=== PATIENT | female | born 1955 | race Caucasian/White ===

== ENCOUNTER 2020-07-19 09:31 | Outpatient (REF) | payer SELFPAY ==
[2020-07-19 11:08] LABS: MANUAL DIFF FLAG NO
[2020-07-19 11:10] LABS: Basophils Absolute Auto 0.1 X10*3/uL (0.0-0.2); Basophils Percent Auto 0.9 % (0-2); Eosinophils Absolute Auto 0.1 X10*3/uL (0.0-0.4); Eosinophils Percent Auto 1.6 % (0-4); Hematocrit 47.9 % (37-47); Hemoglobin 15.4 g/dl (12.0-16.0); Imm Gran Abs Auto 0.02 X10*3/uL (0.00-0.03); Imm Gran Pct Auto 0.2 % (0.0-0.4); Lymphocytes Absolute Auto 1.7 X10*3/uL (1.2-4.9); Lymphocytes Percent Auto 20.8 % (20-40); Mean Corpuscular HGB Conc 32.2 g/dl (31.0-35.0); Mean Corpuscular Hemoglobin 28.3 pg (27.0-33.0); Mean Corpuscular Volume 87.9 fL (80-98); Monocytes Absolute Auto 0.5 X10*3/uL (0.1-1.2); Monocytes Percent Auto 6.4 % (2-11); Neutrophils Absolute Auto 5.6 X10*3/uL (2.0-8.3); Neutrophils Percent Auto 70.1 % (45-73); Platelet Count 286 X10*3/uL (160-400); Red Blood Count 5.45 X10*6/uL (4.20-5.50)
[2020-07-19 11:37] LABS: Estimated Average Glucose 128 mg/dL; Hemoglobin A1c % 6.1 %
[2020-07-19 11:50] LABS: Alanine Aminotransferase 34 U/L (0-31); Albumin Level 4.3 g/dL (3.5-5.0); Alkaline Phosphatase 115 U/L (39-117); Anion Gap 11 (12-20); Aspartate Amino Transferase 27 U/L (5-31); Bilirubin Total 0.6 mg/dL (0.0-1.0); Blood Urea Nitrogen 11 mg/dL (9-16); Calcium 9.3 mg/dL (8.4-10.2); Carbon Dioxide 31 mmol/L (22-29); Chloride 104 mmol/L (96-108); Estimated Glomerular Filt Rate > 60; Glucose Random 118 mg/dL (60-115); Sodium 141 mmol/L (135-145); Total Protein 6.8 g/dL (6.5-8.0)
[2020-07-19 12:12] LABS: Vitamin D 25-OH Total 16.4 ng/mL (>30)
== END 2020-07-19 09:32 | disposition home or self-care (01) ==
LOC: HO.MANLDS 09:31
PROVIDERS: Visit Provider Internal Medicine
DX: R73.01 Impaired fasting glucose (principal); E55.9 Vitamin D deficiency, unspecified
CPT/HCPCS: 36415; 80053; 82306; 83036; 85025

== ENCOUNTER 2020-11-20 14:48 | Outpatient (REF) | payer MEDICARE, SELFPAY ==
[2020-11-20 18:43] LABS: MANUAL DIFF FLAG NO
[2020-11-20 18:46] LABS: Basophils Absolute Auto 0.1 X10*3/uL (0.0-0.2); Eosinophils Absolute Auto 0.2 X10*3/uL (0.0-0.4); Eosinophils Percent Auto 1.9 % (0-4); Hematocrit 46.6 % (37-47); Imm Gran Abs Auto 0.03 X10*3/uL (0.00-0.03); Imm Gran Pct Auto 0.4 % (0.0-0.4); Lymphocytes Absolute Auto 1.7 X10*3/uL (1.2-4.9); Lymphocytes Percent Auto 20.6 % (20-40); Mean Corpuscular HGB Conc 32.2 g/dl (31.0-35.0); Mean Corpuscular Hemoglobin 28.1 pg (27.0-33.0); Mean Corpuscular Volume 87.4 fL (80-98); Mean Platelet Volume 9.8 fL (9.4-12.3); Monocytes Absolute Auto 0.5 X10*3/uL (0.1-1.2); Monocytes Percent Auto 6.4 % (2-11); Neutrophils Absolute Auto 5.8 X10*3/uL (2.0-8.3); Neutrophils Percent Auto 69.7 % (45-73); Platelet Count 311 X10*3/uL (160-400); Red Blood Count 5.33 X10*6/uL (4.20-5.50); Red Cell Distribution Width 13.3 % (11.0-16.0); White Blood Count 8.3 X10*3/uL (4.8-10.8)
[2020-11-20 19:08] LABS: Alanine Aminotransferase 38 U/L (0-31); Albumin Level 4.2 g/dL (3.5-5.0); Alkaline Phosphatase 109 U/L (39-117); Anion Gap 16 (12-20); Aspartate Amino Transferase 24 U/L (5-31); Bilirubin Total 0.6 mg/dL (0.0-1.0); Blood Urea Nitrogen 16 mg/dL (9-16); Calcium 9.1 mg/dL (8.4-10.2); Carbon Dioxide 21 mmol/L (22-29); Chloride 108 mmol/L (96-108); Estimated Glomerular Filt Rate > 60; Glucose Random 290 mg/dL (60-115); Iron 79 mcg/dL (30-160); Percent Iron Saturation 23 % (15-50); Sodium 141 mmol/L (135-145); Total Iron Binding Capacity 339 mcg/dL (228-428); Total Protein 6.7 g/dL (6.5-8.0); Unsaturated Iron Binding 260 ug/dL
[2020-11-20 19:28] LABS: Ferritin 44 ng/mL (10-250); Vitamin D 25-OH Total 18.5 ng/mL (>30)
[2020-11-20 21:43] LABS: Vitamin B12 512 pg/mL (200-900)
[2020-11-21 09:19] LABS: Estimated Average Glucose 134 mg/dL; Hemoglobin A1c % 6.3 %
== END 2020-11-20 14:49 | disposition home or self-care (01) ==
LOC: HO.MANLDS 14:48
PROVIDERS: PCP Internal Medicine; Visit Provider Internal Medicine
DX: E53.8 Deficiency of other specified B group vitamins (principal); R73.01 Impaired fasting glucose; E61.1 Iron deficiency
CPT/HCPCS: 36415; 80053; 82306; 82607; 82728; 83036; 83540; 85025

== ENCOUNTER 2021-02-07 10:33 | Outpatient (REF) | payer MEDICARE, SELFPAY ==
[2021-02-07 13:13] LABS: Estimated Average Glucose 140 mg/dL; Hemoglobin A1c % 6.5 %
[2021-02-07 13:16] LABS: Hemoglobin 14.5 g/dl (12.0-16.0); Mean Corpuscular HGB Conc 32.2 g/dl (31.0-35.0); Mean Corpuscular Hemoglobin 28.1 pg (27.0-33.0); Mean Corpuscular Volume 87.2 fL (80-98); Mean Platelet Volume 9.5 fL (9.4-12.3); Platelet Count 300 X10*3/uL (160-400); Red Blood Count 5.16 X10*6/uL (4.20-5.50); Red Cell Distribution Width 13.4 % (11.0-16.0); White Blood Count 8.2 X10*3/uL (4.8-10.8)
[2021-02-07 13:24] LABS: C Reactive Protein 0.54 mg/dL (< or = 0.50)
[2021-02-07 13:25] LABS: Alanine Aminotransferase 31 U/L (0-31); Albumin Level 4.2 g/dL (3.5-5.0); Alkaline Phosphatase 111 U/L (39-117); Anion Gap 16 (12-20); Aspartate Amino Transferase 24 U/L (5-31); Bilirubin Total 0.8 mg/dL (0.0-1.0); Blood Urea Nitrogen 11 mg/dL (9-16); Calcium 9.6 mg/dL (8.4-10.2); Carbon Dioxide 25 mmol/L (22-29); Chloride 106 mmol/L (96-108); Estimated Glomerular Filt Rate > 60; Glucose Random 109 mg/dL (60-115); Potassium 4.1 mmol/L (3.3-5.1); Sodium 143 mmol/L (135-145); Total Protein 6.6 g/dL (6.5-8.0)
[2021-02-07 13:45] LABS: Vitamin D 25-OH Total 48.4 ng/mL (>30)
[2021-02-07 13:56] LABS: Vitamin B12 310 pg/mL (200-900)
== END 2021-02-07 10:34 | disposition home or self-care (01) ==
LOC: HO.MANLDS 10:33
PROVIDERS: PCP Internal Medicine; Visit Provider Internal Medicine
DX: E55.9 Vitamin D deficiency, unspecified (principal); R73.01 Impaired fasting glucose; E53.8 Deficiency of other specified B group vitamins; I10 Essential (primary) hypertension
CPT/HCPCS: 36415; 80053; 82306; 82607; 83036; 85027; 86140

== ENCOUNTER 2021-07-03 08:15 | Outpatient (REF) | payer MEDICARE, SELFPAY ==
[2021-07-03 10:58] LABS: MANUAL DIFF FLAG NO
[2021-07-03 11:00] LABS: Basophils Absolute Auto 0.1 X10*3/uL (0.0-0.2); Basophils Percent Auto 0.8 % (0-2); Eosinophils Absolute Auto 0.1 X10*3/uL (0.0-0.4); Eosinophils Percent Auto 1.5 % (0-4); Hematocrit 46.2 % (37.0-47.0); Hemoglobin 14.8 g/dl (12.0-16.0); Imm Gran Abs Auto 0.03 X10*3/uL (0.00-0.03); Imm Gran Pct Auto 0.4 % (0.0-0.4); Lymphocytes Absolute Auto 1.8 X10*3/uL (1.2-4.9); Lymphocytes Percent Auto 23.4 % (20-40); Mean Corpuscular Hemoglobin 28.4 pg (27.0-33.0); Mean Corpuscular Volume 88.7 fL (80.0-98.0); Mean Platelet Volume 9.3 fL (9.4-12.3); Monocytes Absolute Auto 0.7 X10*3/uL (0.1-1.2); Neutrophils Absolute Auto 4.9 x10*3/uL (2.0-8.3); Neutrophils Percent Auto 64.9 % (45-73); Platelet Count 314 X10*3/uL (160-400); Red Blood Count 5.21 X10*6/uL (4.20-5.50); Red Cell Distribution Width 13.6 % (11.0-16.0); White Blood Count 7.5 X10*3/uL (4.8-10.8)
[2021-07-03 11:17] LABS: Estimated Average Glucose 134 mg/dL; Hemoglobin A1c % 6.3 %
[2021-07-03 11:31] LABS: Alanine Aminotransferase 30 U/L (0-31); Albumin Level 4.3 g/dL (3.5-5.0); Alkaline Phosphatase 69 U/L (39-117); Anion Gap 12 (12-20); Aspartate Amino Transferase 23 U/L (5-31); Bilirubin Total 0.9 mg/dL (0.0-1.0); Blood Urea Nitrogen 14 mg/dL (9-16); Calcium 9.7 mg/dL (8.4-10.2); Carbon Dioxide 27 mmol/L (22-29); Chloride 108 mmol/L (96-108); Cholesterol 191 mg/dL; Estimated Glomerular Filt Rate > 60; Glucose Fasting 119 mg/dL (60-99); HDL Cholesterol 60 mg/dL; LDL Cholesterol Calculated 112 mg/dl; Potassium 4.3 mmol/L (3.3-5.1); Sodium 143 mmol/L (135-145); Total Protein 6.7 g/dL (6.5-8.0); Triglycerides 96 mg/dL
== END 2021-07-03 08:16 | disposition home or self-care (01) ==
LOC: HO.MANLDS 08:15
PROVIDERS: PCP Physician Assistant; Visit Provider Physician Assistant
DX: R73.01 Impaired fasting glucose (principal)
CPT/HCPCS: 36415; 80053; 80061; 83036; 85025

== ENCOUNTER 2021-07-04 14:59 | Outpatient (REF) | payer MEDICARE, SELFPAY ==
[2021-07-04 20:20] LABS: Vitamin D 25-OH Total 32.2 ng/mL (>30)
== END 2021-07-04 15:00 | disposition home or self-care (01) ==
LOC: HO.MANLDS 14:59
PROVIDERS: PCP Internal Medicine; Visit Provider Internal Medicine
DX: E55.9 Vitamin D deficiency, unspecified (principal)
CPT/HCPCS: 36415; 82306

== ENCOUNTER 2022-05-13 10:38 | Outpatient (REF) | payer MEDICARE, SELFPAY ==
[2022-05-13 13:58] LABS: MANUAL DIFF FLAG NO
[2022-05-13 14:02] LABS: Basophils Absolute Auto 0.1 X10*3/uL (0.0-0.2); Basophils Percent Auto 0.9 % (0-2); Eosinophils Absolute Auto 0.1 X10*3/uL (0.0-0.4); Hemoglobin 14.6 g/dl (12.0-16.0); Imm Gran Abs Auto 0.05 X10*3/uL (0.00-0.03); Imm Gran Pct Auto 0.6 % (0.0-0.4); Lymphocytes Absolute Auto 1.4 X10*3/uL (1.2-4.9); Lymphocytes Percent Auto 18.7 % (20-40); Mean Corpuscular HGB Conc 32.4 g/dl (31.0-35.0); Mean Corpuscular Hemoglobin 28.1 pg (27.0-33.0); Mean Corpuscular Volume 86.5 fL (80.0-98.0); Mean Platelet Volume 9.9 fL (9.4-12.3); Monocytes Absolute Auto 0.7 X10*3/uL (0.1-1.2); Monocytes Percent Auto 9.3 % (2-11); Neutrophils Absolute Auto 5.4 x10*3/uL (2.0-8.3); Neutrophils Percent Auto 69.5 % (45-73); Platelet Count 292 X10*3/uL (160-400); Red Cell Distribution Width 13.2 % (11.0-16.0); White Blood Count 7.7 X10*3/uL (4.8-10.8)
[2022-05-13 14:14] LABS: Estimated Average Glucose 137 mg/dL; Hemoglobin A1c % 6.4 %
[2022-05-13 14:21] LABS: Alanine Aminotransferase 27 U/L (0-31); Albumin Level 4.3 g/dL (3.5-5.0); Alkaline Phosphatase 86 U/L (39-117); Anion Gap 16 (12-20); Aspartate Amino Transferase 26 U/L (5-31); Bilirubin Total 0.6 mg/dL (0.0-1.0); Blood Urea Nitrogen 18 mg/dL (9-16); Calcium 9.8 mg/dL (8.4-10.2); Carbon Dioxide 24 mmol/L (22-29); Chloride 106 mmol/L (96-108); Cholesterol 181 mg/dL; Estimated Glomerular Filt Rate > 60; Glucose Random 121 mg/dL (60-115); HDL Cholesterol 48 mg/dL; LDL Cholesterol Calculated 98 mg/dl; Potassium 4.3 mmol/L (3.3-5.1); Sodium 142 mmol/L (135-145); Total Protein 6.7 g/dL (6.5-8.0); Triglycerides 175 mg/dL
[2022-05-13 14:34] LABS: Vitamin D 25-OH Total 28.2 ng/mL (>30)
== END 2022-05-13 10:39 | disposition home or self-care (01) ==
LOC: HO.MANLDS 10:38
PROVIDERS: Visit Provider Physician Assistant
DX: R73.01 Impaired fasting glucose (principal); E55.9 Vitamin D deficiency, unspecified
CPT/HCPCS: 36415; 80053; 80061; 82306; 83036; 85025

== ENCOUNTER 2022-09-18 11:27 | Outpatient (REF) | payer MEDICARE, SELFPAY ==
[2022-09-18 15:38] LABS: Estimated Average Glucose 143 mg/dL; Hemoglobin A1c % 6.6 %
== END 2022-09-18 11:28 | disposition home or self-care (01) ==
LOC: HO.MANLDS 11:27
PROVIDERS: Visit Provider Internal Medicine
DX: R73.01 Impaired fasting glucose (principal)
CPT/HCPCS: 36415; 83036

== ENCOUNTER 2022-12-10 08:28 | Outpatient (REF) | payer MEDICARE, SELFPAY | END 2022-12-10 08:29 | disposition home or self-care (01) | LOC: HO.MANLDS 08:28 | PROVIDERS: Visit Provider Internal Medicine | DX: Z13.89 Encounter for screening for other disorder (principal) | CPT/HCPCS: 36415; 83036 ==

== ENCOUNTER 2022-12-11 | Outpatient (REF) | payer MEDICARE, SELFPAY ==
[2022-12-11 12:57] LABS: Estimated Average Glucose 131 mg/dL; Hemoglobin A1c % 6.2 %
[2022-12-11 13:14] LABS: Alanine Aminotransferase 25 U/L (0-31); Albumin Level 4.2 g/dL (3.5-5.0); Alkaline Phosphatase 99 U/L (39-117); Anion Gap 14 (12-20); Aspartate Amino Transferase 19 U/L (5-31); Bilirubin Total 0.7 mg/dL (0.0-1.0); Blood Urea Nitrogen 16 mg/dL (9-16); Calcium 9.1 mg/dL (8.4-10.2); Carbon Dioxide 25 mmol/L (22-29); Chloride 108 mmol/L (96-108); Cholesterol 184 mg/dL; Estimated Glomerular Filt Rate > 60; Glucose Random 134 mg/dL (60-115); HDL Cholesterol 54 mg/dL; LDL Cholesterol Calculated 114 mg/dl; Sodium 143 mmol/L (135-145); Total Protein 6.4 g/dL (6.5-8.0); Triglycerides 83 mg/dL
[2022-12-11 13:27] LABS: Vitamin B12 423 pg/mL (200-900)
== END 2022-12-11 00:01 | disposition home or self-care (01) ==
LOC: HO.LAB
PROVIDERS: Visit Provider Internal Medicine
DX: Z13.89 Encounter for screening for other disorder (principal)
CPT/HCPCS: 36415; 80053; 80061; 82043; 82306; 82607; 83036

== ENCOUNTER 2022-12-17 06:16 | Outpatient (REF) | payer MEDICARE, SELFPAY ==
--- NOTE | ~2022-12-17 | XR_ITS ---
X-ray bilateral hips CLINICAL HISTORY: Pain. COMPARISON: No relevant prior studies are available for comparison. TECHNIQUE: 2 views of each hip. FINDINGS: No acute fracture or malalignment. Moderate joint space narrowing, subcortical sclerosis and osteophytosis of the left hip. Mild joint space narrowing and subcortical sclerosis of the right hip. No significant soft tissue abnormality. XR/XR hip LT min 2V IMPRESSION: No acute fracture or malalignment. 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
--- NOTE | ~2022-12-17 | XR_ITS ---
X-ray bilateral hips CLINICAL HISTORY: Pain. COMPARISON: No relevant prior studies are available for comparison. TECHNIQUE: 2 views of each hip. FINDINGS: No acute fracture or malalignment. Moderate joint space narrowing, subcortical sclerosis and osteophytosis of the left hip. Mild joint space narrowing and subcortical sclerosis of the right hip. No significant soft tissue abnormality. XR/XR hip RT min 2V IMPRESSION: No acute fracture or malalignment. 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
== END 2022-12-17 06:17 | disposition home or self-care (01) ==
LOC: HO.XRAY 06:16
PROVIDERS: PCP Internal Medicine; Visit Provider Internal Medicine
DX: M16.0 Bilateral primary osteoarthritis of hip (principal)
CPT/HCPCS: 73502

== ENCOUNTER 2023-06-24 08:13 | Outpatient (REF) | payer MEDICARE, SELFPAY ==
[2023-06-24 13:54] LABS: Estimated Average Glucose 151 mg/dL; Hemoglobin A1c % 6.9 % (<6.0)
[2023-06-24 14:10] LABS: Alanine Aminotransferase 27 U/L (0-31); Albumin Level 4.3 g/dL (3.5-5.0); Alkaline Phosphatase 99 U/L (39-117); Anion Gap 11 (12-20); Aspartate Amino Transferase 23 U/L (5-31); Bilirubin Total 0.7 mg/dL (0.0-1.0); Blood Urea Nitrogen 14 mg/dL (9-16); Calcium 9.8 mg/dL (8.4-10.2); Carbon Dioxide 27 mmol/L (22-29); Chloride 106 mmol/L (96-108); Cholesterol 181 mg/dL (<200); Estimated Glomerular Filt Rate > 60; Glucose Random 134 mg/dL (60-115); HDL Cholesterol 56 mg/dL (>40); LDL Cholesterol Calculated 104 mg/dL (<100); Potassium 3.5 mmol/L (3.3-5.1); Sodium 140 mmol/L (135-145); Total Protein 7.2 g/dL (6.5-8.0); Triglycerides 106 mg/dL (<150)
[2023-06-24 14:18] LABS: Vitamin D 25-OH Total 27.3 ng/mL (>30)
[2023-06-24 14:51] LABS: Vitamin B12 711 pg/mL (200-900)
== END 2023-06-24 08:14 | disposition home or self-care (01) ==
LOC: HO.MANLDS 08:13
PROVIDERS: Visit Provider Internal Medicine
DX: E53.8 Deficiency of other specified B group vitamins (principal); E11.9 Type 2 diabetes mellitus without complications; E55.9 Vitamin D deficiency, unspecified
CPT/HCPCS: 36415; 80053; 80061; 82306; 82607; 83036

== ENCOUNTER 2023-10-01 15:56 | Outpatient (REF) | payer MEDICARE, SELFPAY ==
--- NOTE | ~2023-10-01 | XR_ITS ---
EXAMINATION: XR CHEST CLINICAL INFORMATION: Right chest,? Pneumonia COMPARISON: None available. TECHNIQUE: 2 views of the chest were obtained. FINDINGS: No significant abnormality is noted involving the heart, lungs, mediastinum, bony thorax or soft tissues. XR/XR chest 2V IMPRESSION: No acute cardiopulmonary disease.
== END 2023-10-01 15:57 | disposition home or self-care (01) ==
LOC: HO.HMGCX 15:56
PROVIDERS: PCP Internal Medicine; Visit Provider Physician Assistant
DX: R07.89 Other chest pain (principal)
CPT/HCPCS: 71046

== ENCOUNTER 2023-10-02 08:29 | Outpatient (REF) | payer MEDICARE, SELFPAY ==
[2023-10-02 11:30] LABS: Appearance Urine Cloudy; Color Urine Dark Yellow; Glucose Urine UA 100 mg/dL (Negative); Leukocyte Esterase Urine Negative (Negative); Nitrite Urine Negative (Negative); PH 5.5 (5.0-9.0); Specific Gravity - Urine 1.025 (1.005-1.025); UMIC TRIGGER UACC YES; Urine Blood Negative (Negative); Urine Ketones Trace mg/dL (Negative); Urine Protein 100 (2+) mg/dL (Neg-Trace)
[2023-10-02 11:34] LABS: MANUAL DIFF FLAG NO
[2023-10-02 11:39] LABS: Basophils Percent Auto 0.6 % (0-2); Eosinophils Percent Auto 0.3 % (0-4); Hematocrit 48.8 % (37.0-47.0); Imm Gran Abs Auto 0.02 X10*3/uL (0.00-0.03); Imm Gran Pct Auto 0.3 % (0.0-0.4); Lymphocytes Absolute Auto 0.7 X10*3/uL (1.2-4.9); Lymphocytes Percent Auto 11.8 % (20-40); Mean Corpuscular HGB Conc 32.8 g/dl (31.0-35.0); Mean Corpuscular Hemoglobin 27.8 pg (27.0-33.0); Mean Corpuscular Volume 84.7 fL (80.0-98.0); Mean Platelet Volume 9.7 fL (9.4-12.3); Monocytes Absolute Auto 0.8 X10*3/uL (0.1-1.2); Neutrophils Absolute Auto 4.6 x10*3/uL (2.0-8.3); Platelet Count 244 X10*3/uL (160-400); Red Blood Count 5.76 X10*6/uL (4.20-5.50); Red Cell Distribution Width 13.4 % (11.0-16.0); White Blood Count 6.3 X10*3/uL (4.8-10.8)
[2023-10-02 11:55] LABS: Bacteria Urine Trace (None Seen); Granular Casts Urine Present; RBC Urine 0-2 /HPF (0-2); Renal Epithelial Cells Urine Present; Transitional Epi Cells Urine Present; WBC Urine 0-5 /HPF (0-5)
[2023-10-02 12:30] LABS: Alanine Aminotransferase 25 U/L (0-31); Albumin Level 4.4 g/dL (3.5-5.0); Alkaline Phosphatase 113 U/L (39-117); Anion Gap 15 (12-20); Aspartate Amino Transferase 20 U/L (5-31); Bilirubin Total 0.7 mg/dL (0.0-1.0); Blood Urea Nitrogen 11 mg/dL (9-16); Calcium 9.4 mg/dL (8.4-10.2); Carbon Dioxide 26 mmol/L (22-29); Chloride 101 mmol/L (96-108); Estimated Glomerular Filt Rate > 60; Ferritin 92 ng/mL (10-250); Glucose Random 170 mg/dL (60-115); Iron 34 mcg/dL (30-160); Magnesium 2.2 mg/dL (1.6-2.6); Percent Iron Saturation 11 % (15-50); Potassium 3.7 mmol/L (3.3-5.1); Sodium 138 mmol/L (135-145); Total Iron Binding Capacity 311 mcg/dL (228-428); Total Protein 7.5 g/dL (6.5-8.0); Unsaturated Iron Binding 277 ug/dL
[2023-10-02 12:33] LABS: Erythrocyte Sedimentation Rate 10 MM/HR (0-20)
[2023-10-03 18:09] LABS: Lyme Abs Screen <0.90 index
== END 2023-10-02 08:30 | disposition home or self-care (01) ==
LOC: HO.HMGCLDS 08:29
PROVIDERS: PCP Internal Medicine; Visit Provider Physician Assistant
DX: R53.83 Other fatigue (principal)
CPT/HCPCS: 36415; 80053; 81001; 82728; 83540; 83735; 85025; 85652; 86140; 86617; 86618

== ENCOUNTER 2023-10-20 08:07 | Outpatient (REF) | payer MEDICARE, SELFPAY ==
[2023-10-20 13:48] LABS: Estimated Average Glucose 154 mg/dL
[2023-10-20 14:47] LABS: Cholesterol 184 mg/dL (<200); HDL Cholesterol 58 mg/dL (>40); LDL Cholesterol Calculated 100 mg/dL (<100); Triglycerides 132 mg/dL (<150)
[2023-10-20 14:50] LABS: Vitamin D 25-OH Total 18.3 ng/mL (>30)
== END 2023-10-20 08:08 | disposition home or self-care (01) ==
LOC: HO.MANLDS 08:07
PROVIDERS: Visit Provider Internal Medicine
DX: E11.9 Type 2 diabetes mellitus without complications (principal); E55.9 Vitamin D deficiency, unspecified
CPT/HCPCS: 36415; 80061; 82306; 83036

== ENCOUNTER 2024-04-19 08:04 | Outpatient (REF) | payer MEDICARE, SELFPAY ==
[2024-04-19 10:29] LABS: MANUAL DIFF FLAG NO
[2024-04-19 10:34] LABS: Basophils Absolute Auto 0.1 X10*3/uL (0.0-0.2); Basophils Percent Auto 1.3 % (0-2); Eosinophils Absolute Auto 0.1 X10*3/uL (0.0-0.4); Hematocrit 48.1 % (37.0-47.0); Hemoglobin 15.5 g/dl (12.0-16.0); Imm Gran Abs Auto 0.02 X10*3/uL (0.00-0.03); Imm Gran Pct Auto 0.3 % (0.0-0.4); Lymphocytes Absolute Auto 1.6 X10*3/uL (1.2-4.9); Lymphocytes Percent Auto 22.3 % (20-40); Mean Corpuscular HGB Conc 32.2 g/dl (31.0-35.0); Mean Corpuscular Hemoglobin 27.5 pg (27.0-33.0); Mean Corpuscular Volume 85.3 fL (80.0-98.0); Mean Platelet Volume 9.7 fL (9.4-12.3); Monocytes Absolute Auto 0.5 X10*3/uL (0.1-1.2); Monocytes Percent Auto 7.7 % (2-11); Neutrophils Absolute Auto 4.7 x10*3/uL (2.0-8.3); Neutrophils Percent Auto 66.4 % (45-73); Platelet Count 326 X10*3/uL (160-400); Red Blood Count 5.64 X10*6/uL (4.20-5.50); Red Cell Distribution Width 13.4 % (11.0-16.0)
[2024-04-19 10:48] LABS: Estimated Average Glucose 146 mg/dL; Hemoglobin A1c % 6.7 % (<6.0)
[2024-04-19 11:23] LABS: Alanine Aminotransferase 27 U/L (0-31); Albumin Level 4.4 g/dL (3.5-5.0); Alkaline Phosphatase 101 U/L (39-117); Anion Gap 13 (12-20); Aspartate Amino Transferase 26 U/L (5-31); Bilirubin Total 0.7 mg/dL (0.0-1.0); Blood Urea Nitrogen 14 mg/dL (9-16); Calcium 9.8 mg/dL (8.4-10.2); Carbon Dioxide 26 mmol/L (22-29); Chloride 107 mmol/L (96-108); Cholesterol 179 mg/dL (<200); Estimated Glomerular Filt Rate > 60; Glucose Random 115 mg/dL (60-115); HDL Cholesterol 50 mg/dL (>40); LDL Cholesterol Calculated 113 mg/dL (<100); Potassium 4.3 mmol/L (3.3-5.1); Sodium 142 mmol/L (135-145); Total Protein 7.2 g/dL (6.5-8.0); Triglycerides 80 mg/dL (<150)
[2024-04-19 11:33] LABS: Vitamin B12 428 pg/mL (200-900)
== END 2024-04-19 08:05 | disposition home or self-care (01) ==
LOC: HO.HMGCLR 08:04
PROVIDERS: PCP Internal Medicine; Visit Provider Internal Medicine
DX: Z00.00 Encounter for general adult medical examination without abnormal findings (principal); E78.5 Hyperlipidemia, unspecified; E53.8 Deficiency of other specified B group vitamins; E11.9 Type 2 diabetes mellitus without complications
CPT/HCPCS: 36415; 80053; 80061; 82607; 82746; 83036; 84443; 85025

== ENCOUNTER 2024-07-19 08:37 | Outpatient (REF) | payer MEDICARE, SELFPAY ==
[2024-07-19 10:38] LABS: MANUAL DIFF FLAG NO
[2024-07-19 10:41] LABS: Basophils Absolute Auto 0.1 X10*3/uL (0.0-0.2); Basophils Percent Auto 0.8 % (0-2); Eosinophils Absolute Auto 0.1 X10*3/uL (0.0-0.4); Eosinophils Percent Auto 1.4 % (0-4); Hematocrit 45.5 % (37.0-47.0); Imm Gran Abs Auto 0.02 X10*3/uL (0.00-0.03); Imm Gran Pct Auto 0.2 % (0.0-0.4); Lymphocytes Absolute Auto 1.5 X10*3/uL (1.2-4.9); Lymphocytes Percent Auto 18.3 % (20-40); Mean Corpuscular Hemoglobin 27.5 pg (27.0-33.0); Mean Corpuscular Volume 83.3 fL (80.0-98.0); Mean Platelet Volume 9.5 fL (9.4-12.3); Monocytes Absolute Auto 0.6 X10*3/uL (0.1-1.2); Monocytes Percent Auto 6.7 % (2-11); Neutrophils Absolute Auto 6.1 x10*3/uL (2.0-8.3); Neutrophils Percent Auto 72.6 % (45-73); Platelet Count 311 X10*3/uL (160-400); Red Blood Count 5.46 X10*6/uL (4.20-5.50); Red Cell Distribution Width 13.7 % (11.0-16.0); White Blood Count 8.4 X10*3/uL (4.8-10.8)
[2024-07-19 11:29] LABS: Alanine Aminotransferase 25 U/L (0-31); Albumin Level 4.2 g/dL (3.5-5.0); Alkaline Phosphatase 95 U/L (39-117); Anion Gap 11 (12-20); Aspartate Amino Transferase 27 U/L (5-31); Bilirubin Total 0.7 mg/dL (0.0-1.0); Blood Urea Nitrogen 17 mg/dL (9-16); Calcium 8.8 mg/dL (8.4-10.2); Carbon Dioxide 27 mmol/L (22-29); Chloride 108 mmol/L (96-108); Cholesterol 180 mg/dL (<200); Estimated Average Glucose 120 mg/dL; Estimated Glomerular Filt Rate > 60; Glucose Random 99 mg/dL (60-115); HDL Cholesterol 57 mg/dL (>40); Hemoglobin A1C 150.7402 umol/L; Hemoglobin A1c % 5.8 % (<6.0); LDL Cholesterol Calculated 108 mg/dL (<100); Potassium 3.9 mmol/L (3.3-5.1); Sodium 142 mmol/L (135-145); Total Hemoglobin (HGBA1C) 3818.2057 umol/L; Triglycerides 78 mg/dL (<150)
[2024-07-19 11:33] LABS: Free T4 (Free Thyroxine) 1.01 ng/dL (0.71-1.85)
[2024-07-19 11:43] LABS: Folate 10.4 ng/mL (> or = 4.0); Vitamin B12 509 pg/mL (200-900)
== END 2024-07-19 08:38 | disposition home or self-care (01) ==
LOC: HO.HMGCLR 08:37
PROVIDERS: PCP Internal Medicine; Visit Provider Internal Medicine
DX: Z00.00 Encounter for general adult medical examination without abnormal findings (principal); E53.8 Deficiency of other specified B group vitamins; E78.5 Hyperlipidemia, unspecified; E11.9 Type 2 diabetes mellitus without complications
CPT/HCPCS: 36415; 80053; 80061; 82607; 82746; 83036; 84439; 84443; 85025

== ENCOUNTER 2024-09-28 08:20 | Outpatient (REF) | payer MEDICARE, SELFPAY ==
--- OUTSIDE RECORDS SUMMARY | 2024-09-28 08:42 | XMS_ITS | Data Portability ---
Author Organization [facility] Address [address] [place] [address] Assessment Encounter Date Assessment Date Assessment LastModified by Organization Details LastModified Time 10/01/2023 10/01/2023 Patient agreed and verbally consents to this audio and video Telehealth appt via a secure platform [email or web address] Not available 10/01/2023 14:48:47 10/22/2023 10/22/2023 [id number] [place] [id number] (TOUR CONDUCTOR) MDM MODERATE MUST MEET 2 OUT OF 3 ELEMENTS: PROBLEMS, DATA OR RISK ELEMENT 1: PROBLEMS ADDRESSED 1 OR MORE CHRONIC ILLNESS WITH EXACERBATION OR 2 OR MORE STABLE CHRONIC ILLNESSES OR 1 UNDIAGNOSED NEW PROBLEM OR 1 ACUTE ILLNESS W/SYMPTOMS OR 1 ACUTE COMPLICATED INJURY ELEMENT 2: DATA MUST MEET 1 OF 3 CATEGORIES CATEGORY 1: REVIEW OF PRIOR EXTERNAL NOTES, REVIEW OF RESULTS, ORDERING OF EACH TEST, ASSESSMENT REQUIRING INDEPENDENT HISTORIAN OR CATEGORY 2: INDEPENDENT INTERPRETATION OF TESTS BY ANOTHER PHYSICIAN OR SPECIALIST OR CATEGORY 3: DISCUSSION OF MGT OR TEST INTERPRETATION W/EXTERNAL PHYSICIAN OR SPECIALIST ELEMENT 3: RISK RISK OF COMPLICATIONS AND/OR MORBIDITY OR MORTALITY OF PATIENT MANAGEMENT PROVIDER MUST THOROUGHLY DOCUMENT EACH ELEMENT THAT IS COVERED Not available 10/22/2023 10:24:00 03/23/2024 03/23/2024 Patient agreed and verbally consents to this audio and video Telehealth appt via a secure platform [email or web address] Not available 03/23/2024 15:44:39 04/26/2024 04/26/2024 [id number] [place] [address] (TOUR CONDUCTOR) MDM MODERATE MUST MEET 2 OUT OF 3 ELEMENTS: PROBLEMS, DATA OR RISK ELEMENT 1: PROBLEMS ADDRESSED 1 OR MORE CHRONIC ILLNESS WITH EXACERBATION OR 2 OR MORE STABLE CHRONIC ILLNESSES OR 1 UNDIAGNOSED NEW PROBLEM OR 1 ACUTE ILLNESS W/SYMPTOMS OR 1 ACUTE COMPLICATED INJURY ELEMENT 2: DATA MUST MEET 1 OF 3 CATEGORIES CATEGORY 1: REVIEW OF PRIOR EXTERNAL NOTES, REVIEW OF RESULTS, ORDERING OF EACH TEST, ASSESSMENT REQUIRING INDEPENDENT HISTORIAN OR CATEGORY 2: INDEPENDENT INTERPRETATION OF TESTS BY ANOTHER PHYSICIAN OR SPECIALIST OR CATEGORY 3: DISCUSSION OF MGT OR TEST INTERPRETATION W/EXTERNAL PHYSICIAN OR SPECIALIST ELEMENT 3: RISK RISK OF COMPLICATIONS AND/OR MORBIDITY OR MORTALITY OF PATIENT MANAGEMENT PROVIDER MUST THOROUGHLY DOCUMENT EACH ELEMENT THAT IS COVERED Not available 04/26/2024 10:10:04 07/16/2024 07/16/2024 [id number] [place] [id number] (TOUR CONDUCTOR) MDM MODERATE MUST MEET 2 OUT OF 3 ELEMENTS: PROBLEMS, DATA OR RISK ELEMENT 1: PROBLEMS ADDRESSED 1 OR MORE CHRONIC ILLNESS WITH EXACERBATION OR 2 OR MORE STABLE CHRONIC ILLNESSES OR 1 UNDIAGNOSED NEW PROBLEM OR 1 ACUTE ILLNESS W/SYMPTOMS OR 1 ACUTE COMPLICATED INJURY ELEMENT 2: DATA MUST MEET 1 OF 3 CATEGORIES CATEGORY 1: REVIEW OF PRIOR EXTERNAL NOTES, REVIEW OF RESULTS, ORDERING OF EACH TEST, ASSESSMENT REQUIRING INDEPENDENT HISTORIAN OR CATEGORY 2: INDEPENDENT INTERPRETATION OF TESTS BY ANOTHER PHYSICIAN OR SPECIALIST OR CATEGORY 3: DISCUSSION OF MGT OR TEST INTERPRETATION W/EXTERNAL PHYSICIAN OR SPECIALIST ELEMENT 3: RISK RISK OF COMPLICATIONS AND/OR MORBIDITY OR MORTALITY OF PATIENT MANAGEMENT PROVIDER MUST THOROUGHLY DOCUMENT EACH ELEMENT THAT IS COVERED Not available 07/16/2024 11:34:51 Plan of Treatment Reminders Order Date Submit Date Provider Last Modified By Organization Details Last Modified Time Details Appointments FOLLOW UP 15 2024 10:00A M DR OLIVARES Not available Not available Not available Lab vitamin D, 25-hydrox y, total, serum 2023 024 [facility], [address] [place] [address], [id number], 07/16/2024 11:40:11 HbA1c (hemoglob in A1c), blood 2023 024 [email or web address] [facility], [address] [place] [address], [place], [address], 09/24/2024 15:03:43 iron + TIBC + ferritin, serum 2023 024 [facility], [place], [address], 10/01/2023 14:52:33 TSH + free T4, serum 2023 024 [facility], [address] [place] [address] [place], [address], 10/01/2023 14:52:33 CBC w/ auto diff 2023 024 [facility], [address] [place] [address] [place], [address], 10/03/2023 11:21:09 CMP, serum or plasma 2023 024 [facility], [address] [place] [address] [place], [address], 10/03/2023 11:21:08 ESR (erythroc yte sedimenta tion rate), blood 2023 024 [facility], [address] [place] [address] [place], [address], 10/01/2023 14:52:33 lyme disease igg+igm, serum, reflex western blot 2023 024 [facility], [address] [place] [address] [place], [address], 10/06/2023 11:45:13 magnesium , serum or plasma 2023 024 [facility], [address] [place] [address] [place], [address], 10/01/2023 14:52:33 C-reactiv e protein, quantitat ho, serum or plasma 2023 024 [facility], [address] [place] [address] [place], [address], 10/01/2023 14:52:34 urinalysi s complete, reflex culture 2023 024 [facility], [address] [place] [address] [place], [address], 10/03/2023 11:21:09 Referral None recorded. Procedures None recorded. Surgeries None recorded. Imaging XR, chest, 2 view 2023 [facility]24 [facility], [address] [place] [address] [place], [address], 10/03/2023 09:15:56 Medication Orders ketoconaz ole 2 % topical cream 2023 024 [id number], [address] [place], [address], 07/16/2024 10:55:12 Patient TargetsNo targets recorded. Patient Instructions Encounter Date Encounter Id Patient Instructions Last Modified By Organization Details Last Modified Time 10/22/2023 [id number] athlete's foot: care instructions Not available 10/22/2023 10:30:37 07/16/2024 [id number] learning about type 2 diabetes Not available 07/16/2024 11:35:14 type 2 diabetes: care instructions Not available 07/16/2024 11:35:14 Reason for Referral None Reported. Results Created Date Observation Date Name Description Value Unit Range Abnormal Flag Note LastModifiedBy Organization Detail LastModifiedTime 10/06/19 24 10/01/2023 XR, chest , 2 view No observ ation record ed. [email or web address] [address] [place], [address], 10/06/2023 16:05:10 Result Notes None recorded. Problems Name Problem SNOMED Code Status Onset Date Resolution Date Notes Provider Name and Address Organization Details Recorded Time Cobalami n deficien cy 306271807 Active 2017 [facility] 8 15:51:50 Vitamin D below referenc e range 666395909 Active 2017 [facility] 8 15:52:02 Impaired fasting glycemia 593530927 Completed 201909/19/2022 Santos Olivares DO [address] [place] [address], [address], [facility] 3 21:55:01 Type 2 diabetes mellitus 65307566 Active 2022 Santos Olivares, DO [address] [place] [address], [address], [facility] 3 21:55:15 Osteoart hritis of left hip joint 33988784313 9108 Active 2022 Santos Olivares, DO [address] [place] [address], [address], [facility] 3 15:11:19 Osteoart hritis of right hip joint 04119531462 9107 Active 2022 Santos Olivares, DO [address] [place] [address], [address], [facility] 3 15:11:25 Osteoart hritis 434312991 Active 2022 Santos Olivares, DO [address] [place] [address], [address], [facility] 3 21:38:10 Vitamin D deficien cy 72934366 Active 2022 Santos Olivares, DO [address] [place] [address], [address], [facility] 3 14:17:22 Pain in left foot 99219586195 9107 Active 2022 Santos Olivares, DO [address] [place] [address], [address], [facility] 3 21:43:11 Tight chest 06706828 Active 2023 DONNIE GRAHAM [address] [place] [address], [address], [facility] 4 14:49:26 Fatigue 12782264 Active 2023 DONNIE GRAHAM [address] [place] [address], [address], [facility] 4 14:49:37 Acute urinary tract infectio n 780029364 Active 2023 DONNIE GRAHAM [address] [place], [address], [facility] 4 15:21:06 Cough 24389606 Active 2023 DONNIE GRAHAM [address] [place], [address], [facility] 4 15:21:26 Tinea pedis 8008825 Active 2023 Santos Olivares DO [address] [place], [address], [facility] 4 10:29:32 Dizzines s 269567470 Active 2023 DONNIE GRAHAM [address] [place], [address], [facility] 4 15:44:18 Problem Notes None recorded. Procedures Surgical History None recorded. Imaging Results Imaging Date Name Status LastModified by Organiz ation Details LastModified Time 10/01/2023 XR, chest, 2 view completed [address] [place], [address], 10/06/2023 16:05:10 Procedure Notes None recorded. Medical Equipment None Reported. Allergies No known drug allergies Medications Name Sig Start Date Stop Date Status Note LastModified by Organization Details LastModified Time metformin 500 mg tablet Take 1 tablet every day by oral route. 09/18 completed Not Available Not Available Not Available Iron (ferrous sulfate) 325 mg (65 mg iron) tablet Take 1 tablet every day by oral route. 10/21 completed Not Available Not Available Not Available meloxicam 15 mg tablet TAKE 1 TABLET BY MOUTH EVERY DAY active Not Available Not Available No t Available alendronate 70 mg tablet Take 1 tablet every week by oral route. 09/18 completed Not Available Not Available Not Available sulfamethox azole 800 mg-trimetho prim 160 mg tablet TAKE 1 TABLET BY MOUTH EVERY 12 HOURS FOR 10 DAYS 10/21 completed Not Available Not Available Not Available triamcinolo ne acetonide 0.1 % topical cream APPLY A THIN LAYER TO THE AFFECTED AREA(S) BY TOPICAL ROUTE 2 TIMES PER DAY 07/04 completed Not Available Not Available Not Available terbinafine HCl 250 mg tablet 01/22 completed Not Available Not Available Not Available cyanocobala min (vit B-12) 1,000 mcg/mL injection solution INJECT 1.5ML MONTHLY. *NOT COVERED* active Not Available Not Available No t Available mupirocin 2 % topical ointment APPLY A SMALL AMOUNT TO THE AFFECTED AREA BY TOPICAL ROUTE 3 TIMES PERDAY 05/22 completed Not Available Not Available Not Available methylpredn isolone 4 mg tablets in a dose pack TAKE 6 TABLETS ON DAY 1 DIRECTED ON PACKAGE AND DECREASE BY 1 TAB EACH DAY FOR A TOTAL OF 6 DAYS 10/21 completed Not Available Not Available Not Available hydrocodone 10 mg-chlorphe niramine 8 mg/5 mL oral susp extend.rel 12hr Take 5 mL every 12 hours by oral route as needed for 7 days. 01/22 completed Not Available Not Available Not Available ketoconazol e 2 % topical cream APPLY TOPICALLY EVERY DAY 07/16 completed Not Available Not Available Not Available magnesium active Not Available Not Domi ilable Not Available vitamin K 07/23 completed Not Available Not Available Not Available zinc 10/21 completed Not Available Not Available Not Available Vitamin D 5000 units once a week 10/21 completed Not Available Not Available Not Available Glucos Chond Cplx Advanced 01/03 completed Not Available Not Available Not Available diclofenac 1 % topical gel APPLY 2 GRAMS TO THE AFFECTED AREA(S) BY TOPICAL ROUTE 4 TIMES PER DAY 07/16 completed Not Available Not Available Not Available Adacel (Tdap Adolesn/Augie lt)(PF)2 Lf-(2.5-5-3 -5)-5 Lf/0.5 mL IM syringe 07/23 completed Not Available Not Available Not Available cholecalcif sander (vitamin D3) 125 mcg (5,000 unit) tablet Take by oral route. active Not Available Not Available No t Available Prevnar 13 (PF) 0.5 mL intramuscul ar syringe 10/20 completed Not Available Not Available Not Available Shingrix (PF) 50 mcg/0.5 mL intramuscul ar suspension, kit 10/20 completed Not Available Not Available Not Available Fluzone Quad 60 mcg (15 mcg x 4)/0.5 mL IM suspension 10/20 completed Not Available Not Available Not Available Fluzone Quad (PF) 60 mcg (15 mcg x 4)/0.5 mL IM syringe 07/23 completed Not Available Not Available Not Available BinaxNOW COVID-19 Ag Self Test kit TEST DIRECTED TODAY 09/18 completed Not Available Not Available Not Available Vitals Date Recorded Body height Body mass index (BMI) Body weight Heart rate Oxygen saturation Oxygen saturation in Arterial blood by Pulse oximetry Systolic blood pressure Diastolic blood pressure Provider Name and Address Organization Details Last Updated DateTime 4 153.04 cm 41.4 kg/m2 15898.6 9 g 79 /min 97 % 97 % 138 mm[Hg] 90 mm[Hg] Paola Loera [facility] 4 10:11:20 Date Recorded Body height Body mass index (BMI) Body weight Heart rate Oxygen saturation Oxygen saturation in Arterial blood by Pulse oximetry Systolic blood pressure Diastolic blood pressure Provider Name and Address Organization Details Last Updated DateTime 4 153.04 cm 40.1 kg/m2 96401.6 2 g 78 /min 96 % 96 % 130 mm[Hg] 80 mm[Hg] Carolina Dexter [facility] 4 09:48:22 Date Recorded Body height Body mass index (BMI) Body weight Heart rate Oxygen saturation Oxygen saturation in Arterial blood by Pulse oximetry Systolic blood pressure Diastolic blood pressure Provider Name and Address Organization Details Last Updated DateTime 4 153.04 cm 38.7 kg/m2 85319.4 7 g 72 /min 98 % 98 % 140 mm[Hg] 82 mm[Hg] Alfred Gabriel [facility] 4 10:57:01 Social History Question Answer Notes LastModified by Organizat ion Details LastModified Time Tobacco Smoking Status Never Smoker Not Available [facility] 05/30/2020 03:36:23 What Was The Date Of Your Most Recent Tobacco Screening? 07/16/2024 [email or web address] Information not available 07/16/2024 Do You Use Any Illicit Or Recreational Drugs? No [email or web address] Information not available 06/30/2023 Do You Or Have You Ever Used Any Other Forms Of Tobacco Or Nicotine? No [email or web address] Information not available 06/30/2023 Sex: Unknown Functional Status None recorded. Mental Status None recorded. Family History Nothing Reported. Medical History No medical history recorded. Gynecological HistoryNo gynecological history recorded. Obstetrics History GPAL:G 0 P 0 0 0 0 Immunizations Vaccine Type Date Status Note Provider Nam e and Address Organization Details Recorded Time Influenza, split virus, quadrivalent, preservative 1 completed Teresa cool [facility] 06/30/2023 10:52:06 COVID-19, mRNA, LNP-S, PF, 100 mcg/0.5mL dose or 50 mcg/0.25mL dose 1 completed Teresa cool [facility] 06/30/2023 10:52:06 Pneumococcal conjugate PCV 13 8 completed Teresa cool [facility] 06/30/2023 10:52:06 COVID-19, mRNA, LNP-S, bivalent, PF, 50 mcg/0.5 mL or 25mcg/0.25 mL dose 1 completed Teresa cool [facility] 06/30/2023 10:52:06 COVID-19, mRNA, LNP-S, bivalent, PF, 50 mcg/0.5 mL or 25mcg/0.25 mL dose 1 completed Teresa cool [facility] 06/30/2023 10:52:06 COVID-19, mRNA, LNP-S, bivalent, PF, 50 mcg/0.5 mL or 25mcg/0.25 mL dose 2 completed Teresa cool [facility] 06/30/2023 10:52:06 influenza, unspecified formulation 2 completed Teresa cool [facility] 06/30/2023 10:52:06 Influenza, split virus, quadrivalent, preservative 9 completed Teresa cool [facility] 06/30/2023 10:52:05 Tdap 9 completed Not Available [facility] 01/15/2023 11:02:08 pneumococcal polysaccharide PPV23 0 completed Teresa cool [facility] 06/30/2023 10:52:06 Influenza, split virus, quadrivalent, preservative 0 completed Teresa Castillo silvina [facility] 06/30/2023 10:52:06 Past Encounters Encounter ID Performer Location Encounter Start Date Encounter Closed Date Diagnosis/Indication Diagnosis SNOMED-CT Code Diagnosis ICD10 Code Diagnosis Note [id number] October FREDDY Fernandez [facility] [address] [facility] [address] 06/02/2018 15:47:10 06/02/2018 16:35:54 Hernia of anterior abdominal wall 635154398 K43.9 Infection of skin and/or subcutaneous tissue 72207386 L08.9 of umbilicus unclear if bacterial vs fungal dilligent skin cleansing will await skin culture Tight chest 65729113 R07 .89 pt refused ekg, ama it is however probably unlikely ACS - no htn, high cholestero l, family history, smoking hx, excess etoh history, diabetes. only risk factor is obesity did not feel it was cardiac in nature would like to monitor sx for change or worsening and will f/u if severe crushing chest pain, agrees to call 618 [id number] Santos Olivares DO [facility] [address] [address] 10/20/2018 10:52:45 10/20/2018 11:54:48 Upper respiratory infection 38260540 J06.9 will have her use mucinex and afrin nasal spray will call if anything [place] [id number] Santos Olivares [facility] [address] [address] 01/22/2019 14:55:58 01/22/2019 15:24:38 Vitamin D below reference range 356871629 E55.9 Cobalamin deficiency 190 528123 E53.8 Adult heal th examination 049159407 Z00.00 Multiple joint pain 3567 8005 M25.50 [id number] Santos Olivares [facility] [address] [address] 04/02/2019 08:59:48 04/02/2019 10:12:37 Vitamin D below reference range 967804677 E55.9 Cobalamin deficiency 190 633729 E53.8 Hyperglycemia 52947421 R 73.9 Osteoarthritis of hip 23 8785342 M16.0 [id number] Santos Olivares [facility] [address] [address] 07/23/2019 09:09:18 07/23/2019 09:35:42 Cobalamin deficiency 163891397 E53.8 Taking 1000 mcg Inj/week Vitamin D below reference range 240287915 E55.9 Taking 5000 IU daily and recheck today No change in level of fatigue Adult heal th examination 029393266 Z00.00 Doing well mammo today [id number] Santos Olivares [facility] [address] [address] 01/04/2020 14:52:44 01/04/2020 15:41:46 Cobalamin deficiency 833510976 E53.8 Taking 1000 mcg Inj/week Impaired f asting glycemia 379378590 R73.01 Iron deficiency 59085107 E61.1 [id number] Santos Olivares [facility] [address] [address] 07/18/2020 13:52:13 07/18/2020 15:13:12 Impaired fasting glycemia 524740756 R73.01 no issues we will get her some lab work w a1c Vitamin D below reference range 591282442 E55.9 Taking 5000 IU daily and recheck today No change in level of fatigue Cobalamin deficiency 190 725603 E53.8 Taking 1000 mcg Inj/week will get her some more lab work [id number] Santos Olivares [facility] [address] [address] 07/04/2021 13:43:48 07/06/2021 09:49:40 Impaired fasting glycemia 865279754 R73.01 now better with a1c down to 6.3and back in the IFG Vitamin D below reference range 327706686 E55.9 Taking 50,000 IU weekly and recheck today No change in level of fatigue Pre-surger y evaluation 944276598 Z01.818 per the 2017 ACC cardiac risk stratifica tion this patient is deemed a Low risk for the proposed shoulder surgery. She understand s how to take her medication on the morning of the surgery and otherwise has no special instructio ns. [id number] Santos Olivares [facility] [address] [address] 05/22/2022 09:39:35 05/22/2022 12:16:37 Impaired fasting glycemia 067326968 R73.01 now better with a1c is at 6.4 was 6.3she is still stable Vitamin D below reference range 877319493 E55.9 she will resume the vit D3No change in level of fatigue Cobalamin deficiency 190 954843 E53.8 Taking 1000 mcg Inj/week will get her some more lab work Advance care planning 71 9378188 Z71.89 discussed Active or passive immunization 352690011 Z23 patient advised she is due flu shot, shingles [id number] Santos Olivares [facility] [address] [place] [address],[place] [place] [address] 09/18/2022 10:43:45 09/18/2022 13:51:57 Impaired fasting glycemia 510120622 R73.01 she will need to get a a1c done to follow last a1c is 6.4she is still stablebut we would have her repeat the lab and follow [id number] Santos Olivares [facility] [address] [address] 12/13/2022 14:48:36 12/13/2022 15:19:45 Osteoarthritis of left hip joint 8755978800 58702 M16.12 Osteoarthr itis of right hip joint 9036218492 69457 M16.11 will be getting hip xrays Type 2 jose betes mellitus 68289383 E11.9 doing well and reviewed all lab a1c is 6.2 [id number] Santos Olivares DO [facility] [address] [address] 02/28/2023 07:57:57 02/28/2023 15:26:08 Osteoarthritis of left hip joint 2866320508 27271 M16.12 moderate deg changes p Osteoarthr itis of right hip joint 4178920960 57477 M16.11 mild djd changes Type 2 jose betes mellitus 60391938 E11.9 doing well and reviewed all lab a1c is 6.2 Vitamin D deficiency 347 00935 E55.9 [id number] Santos Olivares [facility] [address] [address] 06/30/2023 10:51:57 06/30/2023 11:48:39 Type 2 diabetes mellitus 72896190 E11.9 doing well and reviewed all lab a1c is 6.9 was 6.3 last time Osteoarthritis 803966470 M19.90 noted to be more sore lately barbi if she has been sitting for any length of time has to wait a bit before she can keep moving noted joint pain with the weather / Osteoarthr itis of left hip joint 5283315150 43822 M16.12 moderate deg changes Vitamin D below reference range 643965482 E55.9 she will resume the vit D3No change in level of fatigue Cobalamin deficiency 190 037065 E53.8 Taking 1000 mcg Inj/week will get her some more lab work [id number] DONNIE GRAHAM [facility] [address] [address] 10/01/2023 13:45:19 10/01/2023 16:23:47 Tight chest 32546801 R07.89 will set up with CXR, r/o or r/in pneumonia Fatigue 05891447 R53.83 fu blood work as well for other acute causes including UTI [id number] Santos Olivares [facility] [address] [facility] [place] [address] 10/22/2023 09:41:50 10/22/2023 10:52:37 Type 2 diabetes mellitus 44097568 E11.9 doing well and reviewed all lab a1c is 6.9 was 6.3 last time Vitamin D deficiency 347 87642 E55.9 now at 18 she had stopped couple months ago so needs Osteoarthritis 909500219 M19.90 noted to be more sore lately barbi if she has been sitting for any length of time has to wait a bit before she can keep moving noted joint pain with the weather / Vitamin D below reference range 217442415 E55.9 she will resume the vit D3No change in level of fatigue Cobalamin deficiency 190 418974 E53.8 Taking 1000 mcg Inj/week will get her some more lab work Elaina curry 9154418 B35. 3 will need to tx otc no t helping [id number] DONNIE GRAHAM [facility] [address] [facility] [place] [address] 03/23/2024 08:47:21 03/23/2024 16:07:56 Fall 8686660 W19.XXXA doing good Dizziness 218138180 R42 improving [id number] Santos Olivares DO [facility] [address] [place] [address] 04/26/2024 09:35:29 04/26/2024 10:18:47 Type 2 diabetes mellitus 35239754 E11.9 doing well and reviewed all lab a1c is 6.7was 6.9 last time Dizziness 047683292 R42 still having an occ prob with episodes Vitamin D below reference range 946463504 E55.9 she will resume the vit D3No change in level of fatigue [id number] Santos Olivares DO [facility] [address] [place] [address] 07/16/2024 10:43:50 07/16/2024 11:44:57 Depression screening 804566293 Z13.31 neg Type 2 jose betes mellitus 68006210 E11.9 doing well and reviewed all lab a1c is 6.7was 6.9 last time current a1c is pending Vitamin D deficiency [id number] 25621 E55.9 now at 18 she had stopped couple months ago so needs Health Concerns Section Related Observation LastModified by Organization Detai ls LastModified Time None Recorded Concern Status LastModified by Organization Details LastModified Time None Recorded Advance Directives Directive None Recorded Payers Encounter Date Sequence Insurance Name Policy Number Policy Duran Covered Member ID Duran Member ID Guarantor Name 10/01/2023 1 [place] PPO) [id number] Elidia Motyka [id number] Elidia Motyka 10/22/2023 2 [place] Elidia Aldanaa [id number] Elidia Motyka 10/22/2023 1 [place] PPO) [id number] Elidia Motyka [id number] Elidia Motyka 03/23/2024 2 [place] Elidia Aldanaa [id number] Elidia Motyka 03/23/2024 1 [place]PO) [id number] Elidia Motyka [id number] Elidia Motyka 04/26/2024 2 [place] Elidia Herrera [id number] Elidia Motyka 04/26/2024 1 [place] PPO) [id number] Elidia Motyka [id number] Elidia Motyka 07/16/2024 2 [place] Elidia Herrera [id number] Elidia Motyka 07/16/2024 1 [place] PPO) [id number] Elidia Motyka [id number] Elidia Motyka Notes Date Note Type Note Provider Name a nd Address Organization Details Recorded Time 4 text/html c/o not feeling well The patient is participating in this appointment via telemedicine communication with a phone call/video calling service ([employer])The patient consents to use of these platforms in place of an in-person appointment due to either sick symptoms the patient is presenting with or current office closure due to COVID exposure in order to keep our office staff and patients safe the patient is have mutliple joint and muscle painfeels like pins and needles sensation along her spinefeels subjectively feverish, has not taken her temperature took it during the appt, was 98.8 F the patient is also getting headaches, frontal and temporal areasno GI or urinary symptoms these symptoms start about a day ago and progressively got worse denies sob, cough, wheezingsome chest tightness negative COVID-19 test no recent exposures that she is aware of she does have a hx of pna with atypical presentation DONNIE GRAHAM [address] [place], [address], [facility] 10/01/2023 14:53:31 4 text/html here for rechk and is doing okrelates that she is tolerating meds states meloxicam is wondrful and is walking and doing exercises states she is doing great Santos AMario Olivares, DO [address] [place], [address], [facility] 10/22/2023 10:33:20 4 text/html c/o fall The patient is participating in this appointment via telemedicine communication with a phone call/video calling service ([employer])The patient consents to use of these platforms in place of an in-person appointment due to either sick symptoms the patient is presenting with or current office closure due to COVID exposure in order to keep our office staff and patients safe the patient reports about 10 days ago she fellthe patient reports that she fell trying to get onto a golf cart, doesn't remember hitting her head, but came down on her right sidethe patient reports she developed dizziness, spinning sensation, gets triggered turning her head to the rightno vision changesmild headaches, right side of the headpatient was having pain behind her R ear into her shoulder, improving, worsened when she is tried is taking melatonin to help sleep at nightno AMS, no excess confusionno LOC the patient doesn't notice any nauseano vomitingsome tinnitus but that has resolved no bruising or swelling behind the ear low GCS 15low wallisian concussion score low need for CTimproving DONNIE GRAHAM [address] [place], [address], [facility] 03/23/2024 15:44:55 4 text/html Care Management - DiabetesReported bypatient.Self Care:seeing eye doctor yearly for dilated eye exam; checking feet regularly; normal range of home blood sugars (in the low 100s); no side effects from medications Associated Symptoms:symptoms are usually well controlled; no fatigue; no dizziness; no excessive sweating; no headaches; no confusion; no increased thirst; no increased appetite; no increased urination; no blurred vision; no numbness of feet; no calluses on feet here for rechk and she is doing ok overall Santos Olivares DO [address] [place], [address], [facility] 04/26/2024 10:15:28 4 text/html Care Management - DiabetesReported bypatient.Self Care:seeing eye doctor yearly for dilated eye exam; checking feet regularly; normal range of home blood sugars (in the low 100s); no side effects from medications Associated Symptoms:symptoms are usually well controlled; no fatigue; no dizziness; no excessive sweating; no headaches; no confusion; no increased thirst; no increased appetite; no increased urination; no blurred vision; no numbness of feet; no calluses on feet here for rechk and is doing ok overallno major issues semiglutide use through Hers doing well with it losing wgt Santos Olivares DO [address] [place], [address], [facility] 07/16/2024 11:42:54 OBGyn Episode No OBEpisode recorded.
[2024-09-28 16:27] LABS: Estimated Average Glucose 114 mg/dL; Hemoglobin A1C 147.3958 umol/L; Hemoglobin A1c % 5.6 % (<6.0); Total Hemoglobin (HGBA1C) 3860.6198 umol/L
== END 2024-09-28 08:21 | disposition home or self-care (01) ==
LOC: HO.MANLDS 08:20
PROVIDERS: Visit Provider Internal Medicine
DX: E11.9 Type 2 diabetes mellitus without complications (principal)
CPT/HCPCS: 36415; 83036

== ENCOUNTER 2024-12-04 08:17 | Outpatient (REF) | payer MEDICARE, SELFPAY ==
--- NOTE | ~2024-12-04 | XR_ITS ---
CLINICAL HISTORY: CERVICALGIA 3 views cervical spine Comparison: None Findings: Normal alignment. No acute fractures or dislocation. Moderate multilevel degenerative disc disease, most pronounced at C4-C5, C5-C6 and C6-C7. Moderate multilevel facet osteoarthritis, qfodq-yubsxdf-rjgh-left. Prevertebral soft tissues within normal limits. IMPRESSION: Multilevel degenerative disc disease and facet osteoarthritis. This document has been electronically signed by: Luda Barnard MD on 12/06/2024 14:27:43
[2024-12-04 08:32] LABS: MANUAL DIFF FLAG NO
[2024-12-04 09:11] LABS: Basophils Absolute Auto 0.1 X10*3/uL (0.0-0.2); Basophils Percent Auto 0.8 % (0-2); Eosinophils Absolute Auto 0.1 X10*3/uL (0.0-0.4); Eosinophils Percent Auto 1.5 % (0-4); Hematocrit 46.5 % (37.0-47.0); Hemoglobin 14.9 g/dl (12.0-16.0); Imm Gran Abs Auto 0.03 X10*3/uL (0.00-0.03); Imm Gran Pct Auto 0.4 % (0.0-0.4); Lymphocytes Absolute Auto 1.6 X10*3/uL (1.2-4.9); Lymphocytes Percent Auto 21.3 % (20-40); Mean Corpuscular Hemoglobin 27.2 pg (27.0-33.0); Mean Corpuscular Volume 84.9 fL (80.0-98.0); Mean Platelet Volume 9.3 fL (9.4-12.3); Monocytes Absolute Auto 0.5 X10*3/uL (0.1-1.2); Monocytes Percent Auto 6.9 % (2-11); Neutrophils Percent Auto 69.1 % (45-73); Platelet Count 289 X10*3/uL (160-400); Red Blood Count 5.48 X10*6/uL (4.20-5.50); Red Cell Distribution Width 13.5 % (11.0-16.0); White Blood Count 7.3 X10*3/uL (4.8-10.8)
[2024-12-04 09:19] LABS: Estimated Average Glucose 120 mg/dL; Hemoglobin A1c % 5.8 % (<6.0); Total Hemoglobin (HGBA1C) 3908.5216 umol/L
[2024-12-04 10:04] LABS: Alanine Aminotransferase 23 U/L (0-31); Albumin Level 4.3 g/dL (3.5-5.0); Alkaline Phosphatase 91 U/L (39-117); Anion Gap 14 (12-20); Aspartate Amino Transferase 25 U/L (5-31); Bilirubin Total 0.6 mg/dL (0.0-1.0); Blood Urea Nitrogen 13 mg/dL (9-16); Calcium 9.6 mg/dL (8.4-10.2); Carbon Dioxide 24 mmol/L (22-29); Chloride 109 mmol/L (96-108); Cholesterol 201 mg/dL (<200); Estimated Glomerular Filt Rate > 60; Glucose Random 103 mg/dL (60-115); HDL Cholesterol 66 mg/dL (>40); LDL Cholesterol Calculated 121 mg/dL (<100); Sodium 143 mmol/L (135-145); Total Protein 7.1 g/dL (6.5-8.0); Triglycerides 73 mg/dL (<150)
[2024-12-04 10:11] LABS: Vitamin B12 393 pg/mL (200-900)
[2024-12-04 10:22] LABS: Vitamin D 25-OH Total 29.2 ng/mL (>30)
== END 2024-12-04 08:18 | disposition home or self-care (01) ==
LOC: HO.XRAY 08:17
PROVIDERS: PCP Internal Medicine; Visit Provider Internal Medicine
DX: E11.9 Type 2 diabetes mellitus without complications (principal); E55.9 Vitamin D deficiency, unspecified; D51.0 Vitamin B12 deficiency anemia due to intrinsic factor deficiency; M54.2 Cervicalgia
CPT/HCPCS: 36415; 72040; 80053; 80061; 82306; 82607; 83036; 85025

== ENCOUNTER → 2024-12-04 08:35 | Outpatient (BNV) | payer MEDICARE, SELFPAY | PROVIDERS: PCP Internal Medicine; Visit Provider Radiology Diagnostic Radiology | DX: M50.30 Other cervical disc degeneration, unspecified cervical region (principal) | CPT/HCPCS: 72040 ==

== ENCOUNTER 2025-06-22 08:28 | Outpatient (REF) | payer MEDICARE, SELFPAY ==
--- OUTSIDE RECORDS SUMMARY | 2025-06-22 08:52 | XMS_ITS | Encounter Summary ---
Author Organization [facility] Address [address] [place] [address] Phone Care Team Providers Care Small Wind Energy Installer Name Role Phone Santos Puga DO Unavailable Tamir Valdez DO Unavailable [phone] Dagmar Garcia PA-C Unavailable [phone] Magaly Diaz MD Unavailable [phone] Santos Puga DO Primary Care Provider [phone] Encounter Details Date Type Department Care Team (Late st Contact Info) Description 06/20/2020 Procedure Pass [facility] - [address] [place] [address] Social History Tobacco Use Types Packs/Day Years Used Date Smoking Tobacco: Never Assessed Comments No Sex and Gender Information Value Date Recorded Sex Assigned at Not on file Legal Sex Female 4:38 PM EST Gender Identity Not on file Sexual Orientation Not on file documented as of this encounter Plan of Treatment Upcoming Encounters Date Type Department Care Team (Late st Contact Info) Description 12/13/2024 Procedure Pass [address] [address] 07/15/2025 11:15 AM EST Appointment [address] [address] Santos Puga DO 179 [facility] [place] [address] [place] [address] [email or web address] 07/15/2025 11:45 AM EST Appointment [facility], Bone Density - [facility] [address] [place] [address] Santos Puga DO 179 [facility] [place] [address] [place] [address] documented as of this encounter Visit Diagnoses Not on filedocumented in this encounter Care Teams Small Wind Energy Installer Relationship Specialty Start Date End Date Santos Puga DO PCP - General 06/26/17 Santos Puga DO Historical LMR Provider 05/12/17 Tamir Valdez DO 4 [facility] Orthopedics & Sports [facility], [facility] [place] [address] Historical LMR Provider 05/12/17 Dagmar Garcia PA-C 4 [facility] Orthopedics Sports [facility], [place], [place] [phone] Historical LMR Provider 05/12/17 08/04/21 Magaly Diaz MD 4 [facility] Orthopedics & Sports [facility], [place], [place] [phone] Historical LMR Provider 05/12/17 documented as of this encounter Additional Source Comments The information contained in this document represents components of the legal health record. It is not the complete legal health record.[facility]
--- OUTSIDE RECORDS SUMMARY | 2025-06-22 08:52 | XMS_ITS | Encounter Summary ---
Author Organization [facility] Address [address] [place] [address] Phone Care Team Providers Care Associate Doctor Name Role Phone Santos Puga DO Unavailable Tamir Valdez DO Unavailable [phone] Dagmar Garcia PA-C Unavailable [phone] Magaly Diaz MD Unavailable [phone] Santos Puga DO Primary Care Provider [phone] Encounter Details Date Type Department Care Team (Late st Contact Info) Description 06/16/2018 Ancillary Orders Virtual Department [address] [place] [address] Fanta Fernandez PA-C [address] [place] [address] [email or web address] Lower abdominal pain Social History Tobacco Use Types Packs/Day Years Used Date Smoking Tobacco: Never Assessed Comments Unknown Sex and Gender Information Value Date Recorded Sex Assigned at Not on file Legal Sex Female 4:38 PM EST Gender Identity Not on file Sexual Orientation Not on file documented as of this encounter Plan of Treatment Upcoming Encounters Date Type Department Care Team (Late st Contact Info) Description 12/13/2024 Procedure Pass [address] [address] 07/15/2025 11:15 AM EST Appointment [address] [address] Santos Puga, DO 179 [facility] [place], [place] [phone] 07/15/2025 11:45 AM EST Appointment [facility], Bone Density - [facility] [address] [place] [address] Santos Puga DO 179 [facility] [place], [place] [phone] documented as of this encounter Visit Diagnoses Diagnosis Lower abdominal pain Abdominal pain, other specified site documented in this encounter Care Teams Associate Doctor Relationship Specialty Start Date End Date Santos PugaDO PCP - General 06/26/17 Edd Santos DO Xander Historical LMR Provider 05/12/17 Tamir Valdez DO 4 [facility] Orthopedics & Sports [facility], [facility] [place], [place] [phone] Historical LMR Provider 05/12/17 Dagmar Garcia PA-C 4 [facility] Orthopedics Sports [facility], [facility] [place], [place] [id number] Historical LMR Provider 05/12/17 08/04/21 Magaly Diaz MD 4 [facility] Orthopedics Sports [facility], [place] [address] Historical LMR Provider 05/12/17 documented as of this encounter Additional Source Comments The information contained in this document represents components of the legal health record. It is not the complete legal health record.[facility]
--- OUTSIDE RECORDS SUMMARY | 2025-06-22 08:52 | XMS_ITS | Encounter Summary ---
Author Organization [facility] Address [address] [place] [address] Phone Care Team Providers Care Cardiology Physician Assistant Name Role Phone Santos Puga DO Unavailable Tamir Valdez DO Unavailable Dagmar Garcia PA-C Unavailable Magaly Diaz MD Unavailable Santos Puga DO Primary Care Provider [phone] Encounter Details Date Type Department Care Team (Late st Contact Info) Description 02/05/2021 Ancillary Orders Virtual Department [address] [place] [address] Santos Puga DO 179 [facility] [place] [address] [place] [address] [email or web address] Left foot pain Social History Tobacco Use Types Packs/Day [...] st Contact Info) Description 12/13/2024 Procedure Pass [address] [address] 07/15/2025 11:15 AM EST Appointment [address] [address] Santos Puga, DO 179 [facility] [place] [address] [place] [address] [email or web address] 07/15/2025 11:45 AM EST Appointment [facility], Bone Density [facility] [address] [place] [address] Santos Puga, DO 179 [facility] [place] [address] [email or web address] documented as of this encounter Results * XR FOOT 3 OR MORE VIEWS (LEFT) (02/08/2021 9:27 AM EDT) Anatomical Region Laterality Modality Foot Left Computed Radiogr aphy 02/08/2021 9:30 AM EDT Impressions 02/08/2021 9:33 AM EDT Minimal midfoot osteoarthritis. Otherwise unremarkable plain film appearance of the foot. POS [id number] Narrative 02/08/2021 9:33 AM EDT 3 views. No comparison No signs of trauma, tumor or infection. No obvious soft tissue mass, gas or calcifications. Very minor degenerative spurring in the dorsal midfoot. No other significant arthritic changes. Procedure Note Brice Guzman MD - 02/08/2021 3 views. No comparison No signs of trauma, tumor or infection. No obvious soft tissue mass, gas or calcifications. Very minor degenerative spurring in the dorsal midfoot. No other significant arthritic changes. IMPRESSION: Minimal midfoot osteoarthritis. Otherwise unremarkable plain filmappearance of the foot. POS [id number] Santos Puga DO IMG XR LOWER EXTREMITY Final Res ult documented in this encounter Visit Diagnoses Diagnosis Left foot pain Pain in soft tissues of limb Left foot pain Pain in soft tissues of limb documented in this encounter Care Teams Cardiology Physician Assistant Relationship Specialty Start Date End Date Santos Puga DO PCP - General 06/26/17 Santos Puga Historical LMR Provider 05/12/17 Tamir Valdez DO 4 [facility] Orthopedics Sports [facility] [place], [place] [phone] Historical LMR Provider 05/12/17 Damgar Garcia PA-C [address] [place], [place] [phone] Historical LMR Provider 05/12/17 08/04/21 Magaly Diaz MD 4 [facility] Orthopedics [facility], [place], [place] [phone] Historical LMR Provider 05/12/17 documented as of this encounter Additional Source Comments The information contained in this document represents components of the legal health record. It is not the complete legal health record.[facility]
--- OUTSIDE RECORDS SUMMARY | 2025-06-22 08:53 | XMS_ITS | Encounter Summary ---
Author Organization [facility] Address [address] [place] [address] Phone Care Team Providers Care Autocad Detailer Name Role Phone Santos Puga DO Unavailable CourtneyTamir Buzz DO Unavailable [phone] Santos Puga DO Primary Care Provider [phone] Encounter Details Date Type Department Care Team (Late st Contact Info) Description 02/04/2022 Procedure Pass [address] [address] Social History Tobacco Use Types Packs/Day Years [...] st Contact Info) Description 12/13/2024 Procedure Pass [address] [address] 07/15/2025 11:15 AM EST Appointment [address] [address] Santos Puga DO 179 [facility] [place] [address] 07/15/2025 11:45 AM EST Appointment [address] [address] Santos Puga DO 179 [facility] [place] [address] documented as of this encounter Visit Diagnoses Not on filedocumented in this encounter Care Teams Autocad Detailer Relationship Specialty Start Date End Date Santos Puga DO PCP - General 06/26/17 Santos Puga DO [email or web address] Historical LMR Provider 05/12/17 Tamir Valdez DO [address] [place] [address] Orthopedics & Sports Medicine, [facility] [place] [address] [email or web address] Historical LMR Provider 05/12/17 documented as of this encounter Additional Source Comments The information contained in this document represents components of the legal health record. It is not the complete legal health record.[facility]
--- OUTSIDE RECORDS SUMMARY | 2025-06-22 08:53 | XMS_ITS | Encounter Summary ---
Author Organization [facility] Address [address] [place] [address] Phone Care Team Providers Care Payroll Human Resources Assistant Name Role Phone Santos Puga DO Unavailable Tamir Valdez DO Unavailable [phone] Dagmar Garcia PA-C Unavailable [phone] Magaly Diaz MD Unavailable [phone] Unknown, Unknown Primary Care Provider Santos Bullock DO Primary Care Provider [phone] Encounter Details Date Type Department Care Team (Late st Contact Info) Description 05/17/2017 Ancillary Orders [facility] OBGYN & Midwifery [address] [place] [address] Thuan Gallardo MD [address] [place] [address] Social History Tobacco Use Types Packs/Day Years [...] st Contact Info) Description 12/13/2024 Procedure Pass [address] [address] 07/15/2025 11:15 AM EST Appointment [address] [place] [address] Edd Santos Terrell, DO 179 [place] [address] 07/15/2025 11:45 AM EST Appointment [facility], Bone Density - [address] [address] Santos Puga, DO 179 [place] [address] documented as of this encounter Visit Diagnoses Not on filedocumented in this encounter Care Teams Payroll Human Resources Assistant Relationship Specialty Start Date End Date Unknown, Unknown, 4 [facility] Orthopedics Sports [facility], [place] [address] PCP - General 05/17/17 06/25/17 Santos Puga DO PCP - General 06/26/17 Santos Puga DO Historical LMR Provider 05/12/17 Tamir Valdez DO 4 [facility], [place], [place] [phone] Historical LMR Provider 05/12/17 Dagmar Garcia PA-C 4 [facility], [place], [place] [phone] Historical LMR Provider 05/12/17 08/04/21 Magaly Diaz MD 4 [facility] [place] [place] [address] Historical LMR Provider 05/12/17 documented as of this encounter Additional Source Comments The information contained in this document represents components of the legal health record. It is not the complete legal health record.[facility]
--- OUTSIDE RECORDS SUMMARY | 2025-06-22 08:53 | XMS_ITS | Encounter Summary ---
Author Organization [facility] Address [address] [place] [address] Phone Care Team Providers Care Knitter Hand Name Role Phone Santos Puga DO Unavailable CourtneyTamir DO Unavailable [phone] WardSantos shultz DO Primary Care Provider [phone] Encounter Details Date Type Department Care Team (Late st Contact Info) Description 01/15/2023 Ancillary Orders [facility] Medical [facility] Orthopedics & Sports Medicine [address] [place] [address] Brice Yusuf PA-C [address] [place] [address] Orthopedics & Sports Medicine, [place], [place] [phone] [email or web address] Social History Tobacco Use Types Packs/Day Years Used Date Smoking Tobacco: Never Assessed Education Answer Date Recorded Are you interested in more education? Not on ernesto e 11/22/2022 Are you concerned about learning? Not on file 11/22/2022 No 11/22/2022 No 11/22/2022 Digital Access Answer Date Recorded No 12/23/2022 No 12/23/2022 Reliable internet access at home? Not on file 12/23/2022 Device with a working camera? Not on file Comments No Sex and Gender Information Value Date Recorded Sex Assigned at Not on file Legal Sex Female 4:38 PM EST Gender Identity Not on file Sexual Orientation Not on file documented as of this encounter Plan of Treatment Upcoming Encounters Date Type Department Care Team (Late st Contact Info) Description 12/13/2024 Procedure Pass [facility], [address] [address] 07/15/2025 11:15 AM EST Appointment [address] [address] EddSantos, DO [address] [place] [address] 07/15/2025 11:45 AM EST Appointment [facility], Bone Density [address] [address] Santos Puga, DO [address] [place] [address] documented as of this encounter Visit Diagnoses Not on filedocumented in this encounter Care Teams Knitter Hand Relationship Specialty Start Date End Date Edd Santos DO Xander PCP - General 06/26/17 Santos Puga DO Historical LMR Provider 05/12/17 Tamir Valdez DO [address] [place] [address] Orthopedics & Sports Medicine, [place] [address] Historical LMR Provider 05/12/17 documented as of this encounter Additional Source Comments The information contained in this document represents components of the legal health record. It is not the complete legal health record.[facility]
--- OUTSIDE RECORDS SUMMARY | 2025-06-22 08:53 | XMS_ITS | Encounter Summary ---
Author Organization [facility] Address [address] [place] [address] Phone Care Team Providers Care Tnt Line Supervisor Name Role Phone Santos uPga DO Unavailable Tamir Valdez DO Unavailable Dagmar Garcia PA-C Unavailable [phone] Magaly Diaz MD Unavailable [phone] Santos Puga DO Primary Care Provider [phone] Encounter Details Date Type Department Care Team (Late st Contact Info) Description 06/22/2019 Ancillary Orders Virtual Department [address] [place] [address] Santos Puga DO 179 [facility] [place] [address] [place] [address] Breast screening Social History Tobacco Use Types Packs/Day Years [...] Contact Info) Description 12/13/2024 Procedure Pass [address] [address] 07/15/2025 11:15 AM EST Appointment [address] [address] Santos Puga, DO [address] [facility] [place] [address] [place] [address] [email or web address] 07/15/2025 11:45 AM EST Appointment [facility], Bone Density - [facility] [address] [place] [address] Santos Puga, DO [address] [facility] [place] [address] [place] [address] [email or web address] documented as of this encounter Results * BI MAMMOGRAM SCREENING WITH TOMOSYNTHESIS WITH CAD (BILATERAL) (07/23/2019 11:18 AM EST) Anatomical Region Laterality Modality Breast Left, Breast Right, Breast Bilateral Bila teral Mammography 07/23/2019 12:1 7 PM EST Impressions 07/23/2019 12:19 PM EST Stable appearance relative to prior imaging. No findings suggestive of malignancy are seen. BI-RADS CATEGORY: 2 - Benign finding. DENSITY: There are scattered fibroglandular densities. POS - [id number] Narrative 07/23/2019 12:19 PM EST Full-field digital mammography is obtained with computer-aided detection. Comparison with prior imaging from May 29, 2017 is made with older imaging dating back as far as July 27, 2008 also reviewed. There is scattered fibroglandular density evident in the breasts. In addition to 2-D C view imaging, tomosynthesis images are obtained in two projections of each breast. There are minor bilateral circular macrocalcifications evident which are unchanged.. No dominant soft tissue mass of concern, suspicious cluster of calcifications, significant interval skin changes, or architectural distortion is identified. Procedure Note Sung Ambrose MD - 07/23/2019 Full-field digital mammography is obtained with computer-aided detection.Comparison with prior imaging from May 29, 2017 is made with olderimaging dating back as far as July 27, 2008 also reviewed. There is scattered fibroglandular density evident in the breasts. Inaddition to 2-D C view imaging, tomosynthesis images are obtained in twoprojections of each breast. There are minor bilateral circular macrocalcifications evident which areunchanged.. No dominant soft tissue mass of concern, suspicious clusterof calcifications, significant interval skin changes, or architecturaldistortion is identified. IMPRESSION: Stable appearance relative to prior imaging. No findings suggestive ofmalignancy are seen. BI-RADS CATEGORY: 2 - Benign finding. DENSITY: There are scattered fibroglandular densities. POS - [id number] Santos Puga DO IMG MG EXAMS Final Result documented in this encounter Visit Diagnoses Diagnosis Breast screening Breast screening, unspecified Breast screening Breast screening, unspecified documented in this encounter Care Teams Tnt Line Supervisor Relationship Specialty Start Date End Date Santos Puga DO PCP - General 06/26/17 Santos Puga DO Historical LMR Provider 05/12/17 Tamir Valdez DO 4 [facility] [place] [address] Historical LMR Provider 05/12/17 Dagmar Garcia PA-C 4 [facility], [facility] [place] [address] Historical LMR Provider 05/12/17 08/04/21 Magaly Diaz MD 4 [facility], [place] [address] Historical LMR Provider 05/12/17 documented as of this encounter Additional Source Comments The information contained in this document represents components of the legal health record. It is not the complete legal health record.[facility]
--- OUTSIDE RECORDS SUMMARY | 2025-06-22 08:53 | XMS_ITS | Encounter Summary ---
Author Organization [facility] Address [address] [place] [address] Phone Care Team Providers Care Facer Operator Name Role Phone Santos Puga DO Unavailable Tamir Valdez DO Unavailable [phone] Dagmar Garcia PA-C Unavailable [phone] Magaly Diaz MD Unavailable [phone] Unknown, Unknown Primary Care Provider Santos Bullock DO Primary Care Provider [phone] Encounter Details Date Type Department Care Team (Late st Contact Info) Description 05/17/2017 Ancillary Orders [facility] X-Ray [address] [address] Thuan Gallardo MD [address] [place] [address] Visit for screening mammogram Social History Tobacco Use Types Packs/Day Years [...] st Contact Info) Description 12/13/2024 Procedure Pass [facility] [address] [address] 07/15/2025 11:15 AM EST Appointment [address] [place] [address] Santos Puga, DO 179 [facility] [place] [address] [email or web address] 07/15/2025 11:45 AM EST Appointment [facility], Bone Density - [address] [address] Santos Puga, DO [address] [facility] [place] [address] documented as of this encounter Results * BI MAMMOGRAM SCREENING WITH TOMOSYNTHESIS WITH CAD (BILATERAL) (05/29/2017 12:55 PM EDT) Anatomical Region Laterality Modality Breast Left, Breast Right, Breast Bilateral Bila teral Mammography 05/29/2017 4:40 PM EDT Impressions 05/29/2017 4:41 PM EDT No mammographic change indicative of malignancy. Routine screening is recommended. BI-RADS CATEGORY: 1 - Negative. DENSITY: The breast tissue is almost entirely fat. POS - [id number] Narrative 05/29/2017 4:41 PM EDT Bilateral full-field digital screening mammography is obtained and read in conjunction with computer-aided detection. Tomosynthesis as well as 2-D C view imaging of both breasts in two planes also obtained. Comparison made to multiple prior, most recent 04/26/2016, and most remote 07/08/2007. No dominant mass, suspicious microcalcification, architectural distortion, focal skin thickening or worrisome asymmetry is detected. Procedure Note Federico Price MD - 05/29/2017 Bilateral full-field digital screening mammography is obtained and read inconjunction with computer-aided detection. Tomosynthesis as well as 2-D Cview imaging of both breasts in two planes also obtained. Comparison madeto multiple prior, most recent 04/26/2016, and most remote 07/08/2007. No dominant mass, suspicious microcalcification, architectural distortion,focal skin thickening or worrisome asymmetry is detected. IMPRESSION: No mammographic change indicative of malignancy. Routine screening isrecommended. BI-RADS CATEGORY: 1 - Negative. DENSITY: The breast tissue is almost entirely fat. POS - [id number] us Thuan Gallardo MD IMG MG EXAMS Final Result documented in this encounter Visit Diagnoses Diagnosis Visit for screening mammogram Visit for screening mammogram documented in this encounter Care Teams Facer Operator Relationship Specialty Start Date End Date Unknown, Unknown, 4 [facility], [place] [address] PCP - General 05/17/17 06/25/17 Santos Puga DO PCP - General 06/26/17 Santos Puga DO Historical LMR Provider 05/12/17 Tamir Valdez DO 4 [facility], [place], [place] [id number] Historical LMR Provider 05/12/17 Dagmar Garcia PA-C 4 [facility], [place], [place] [id number] Historical LMR Provider 05/12/17 08/04/21 Magaly Diaz MD 4 [facility], [place] [address] Historical LMR Provider 05/12/17 documented as of this encounter Additional Source Comments The information contained in this document represents components of the legal health record. It is not the complete legal health record.[facility]
--- OUTSIDE RECORDS SUMMARY | 2025-06-22 08:53 | XMS_ITS | Encounter Summary ---
Author Organization [facility] Address [address] [place] [address] Phone Care Team Providers Care Personnel Adviser Name Role Phone Santos Puga DO Unavailable Tamir Valdez DO Unavailable Dagmar Garcia PA-C Unavailable Magaly Diaz MD Unavailable [phone] Santos Puga DO Primary Care Provider [phone] Encounter Details Date Type Department Care Team (Late st Contact Info) Description 06/20/2020 Ancillary Orders Virtual Department [address] [place] [address] Santos Puga DO 179 [facility] [place] [address] [place] [address] Breast screening Social History Tobacco Use Types [...] st Contact Info) Description 12/13/2024 Procedure Pass [address] [address] 07/15/2025 11:15 AM EST Appointment [address] [address] Santos Puga, DO 179 [facility] [place] [address] [place] [address] [email or web address] 07/15/2025 11:45 AM EST Appointment [facility], Bone Density - [facility] [address] [place] [address] Santos Puga, DO [address] [facility] [place] [address] [place] [address] [email or web address] documented as of this encounter Results * BI MAMMOGRAM SCREENING WITH TOMOSYNTHESIS WITH CAD (BILATERAL) (07/26/2020 9:38 AM EST) Anatomical Region Laterality Modality Breast Left, Breast Right, Breast Bilateral Bila teral Mammography 07/26/2020 9:40 AM EST Impressions 07/26/2020 9:44 AM EST No mammographic signs of malignancy. Annual screening is recommended. BI-RADS CATEGORY: 2 - Benign finding. DENSITY: There are scattered fibroglandular densities. Narrative 07/26/2020 9:44 AM EST Bilateral mammography is performed in conjunction with computed aided detection. 3-D tomography along with 2-D C view imaging was also performed. Comparison made to previous dated as far back as 08/27/2013 and as recent as 07/23/2019. No suspicious masses, areas of architectural distortion or suspicious microcalcifications. Stable bilateral lucent centered calcifications with benign characteristics. Procedure Note Bakari Jacobson MD - 07/26/2020 Bilateral mammography is performed in conjunction with computed aideddetection. 3-D tomography along with 2-D C view imaging was alsoperformed. Comparison made to previous dated as far back as 08/27/2013 andas recent as 07/23/2019. No suspicious masses, areas of architectural distortion or suspiciousmicrocalcifications. Stable bilateral lucent centered calcifications withbenign characteristics. IMPRESSION: No mammographic signs of malignancy. Annual screening is recommended. BI-RADS CATEGORY: 2 - Benign finding. DENSITY: There are scattered fibroglandular densities. Santos Puga DO IMG MG EXAMS Final Result documented in this encounter Visit Diagnoses Diagnosis Breast screening Breast screening, unspecified Breast screening Breast screening, unspecified documented in this encounter Care Teams Personnel Adviser Relationship Specialty Start Date End Date Santos Puga DO PCP - General 06/26/17 Santos PugaDO Historical LMR Provider 05/12/17 Tamir Valdez DO 4 [facility], [place], [place] [phone] Historical LMR Provider 05/12/17 Dagmar Garcia PA-C 4 [facility], [place], [place] [phone] Historical LMR Provider 05/12/17 08/04/21 Magaly Diaz MD 4 [facility], [place], [place] [phone] Historical LMR Provider 05/12/17 documented as of this encounter Additional Source Comments The information contained in this document represents components of the legal health record. It is not the complete legal health record.[facility]
--- OUTSIDE RECORDS SUMMARY | 2025-06-22 08:53 | XMS_ITS | Clinical Summary ---
Author Organization [facility] Address [address] [place] [address] Phone Care Team Providers Care Tool Procurement Coordinator Name Role Phone Santos Puga DO Unavailable Tamir Valdez DO Unavailable [phone] Wardcarrington Santos Jordana DO Primary Care Provider [phone] Allergies No known active allergies Medications Medication-Free Text B12 1.5 Active Medication-Free Text Vitamin D Active ACETAMINOPHEN (TYLENOL ORAL) Activ e cephalexin (KEFLEX) 500 MG capsule 4 capsules Orally 1 hour prior to dental appt 12/07/2014 Active diclofenac sodium (VOLTAREN) 75 MG EC tablet Take 1 tablet by mouth 2 (two) times a day. 06/27/2014 Active Medication-Free Text Iron Active Active Problems Problem Noted Date Diagnosed Date Left hip pain 05/01/2020 Social History Tobacco Use Types Packs/Day Years [...] on file Sexual Orientation Not on file Last Filed Vital Signs Vital Sign Reading Time Taken Comments Blood Pressure 135/85 12/28/2014 8:50 AM EDT Pulse 74 12/28/2014 8:50 AM EDT Temperature - - Respiratory Rate - - Oxygen Saturation - - Inhaled Oxygen Concentration - - Weight 98.3 kg (216 lb 12.8 oz) 05/01/2020 8:36 AM EDT Height 154.6 cm (5' 0.87 ) 05/01/2020 8:36 AM ED T Body Mass Index 41.14 05/01/2020 8:36 AM EDT Plan of Treatment Upcoming Encounters Date Type Department Care Team (Late st Contact Info) Description 12/13/2024 Procedure Pass [address] [address] 07/15/2025 11:15 AM EST Appointment [address] [address] Santos Puga, [address] [place] [address] 07/15/2025 11:45 AM EST Appointment [facility] Bone Density [address] [address] Santos Puga, [address] [place] [address] Health Maintenance Due Date Last Done Comments LIPID PANEL 1955 DEPRESSION SCREENING 1967 SMOKING Hx and SMOKELESS TOBACCO SCREENING 1968 HEPATITIS C SCREENING 1973 COLOGUARD 2000 COLONOSCOPY 2000 COLORECTAL CANCER SCREENING 2000 FIT TEST 2000 FOBT 2000 SIGMOIDOSCOPY 2000 VIRTUAL COLONOSCOPY 2000 ZOSTER VACCINES (1 of 2) 2005 MAMMOGRAM 05/21/2024 05/21/2022, 12/, 07/23/2019, Additional history exists INFLUENZA VACCINE (#1) 2025 2, 06/16/2021, 05/25/2020, Additional history exists COVID-19 VACCINE ( season) 2025 06/05/2022, 06/16/2021, 10/19/2020, Additional history exists Adult Td,Tdap Booster 05/22/2029 05/22/2019 RSV VACCINE (1 - 1-dose 75+ series) 2030 PNEUMOCOCCAL VACCINES (50+ years) Completed 04/20/2020, 11/03/2017 OSTEOPOROSIS SCREENING INITIAL (ONE-TIME) Completed 02/08/2021 HEPATITIS A VACCINES Aged Out No long er eligible based on patient's age to complete this topic HIB VACCINES Aged Out No longer eligi ble based on patient's age to complete this topic MENINGOCOCCAL VACCINES (ACWY) Aged Out No longer eligible based on patient's age to complete this topic MENINGOCOCCAL VACCINES (B) Aged Out N o longer eligible based on patient's age to complete this topic Medical Devices Not on file Procedures Procedure Name Priority Date/Time Associated Diagnosis Comments BI MAMMOGRAM SCREENING WITH TOMOSYNTHESIS WITH CAD (BILATERAL) Routine 05/21/2022 7:29 AM EDT Breast screening BD DXA AXIAL (SPINE) WITH HIP Routine 02/08/2021 9:21 AM EDT Other specified disorders of bone density and structure, unspecified site Osteopenia, unspecified location from Last 3 Months or Most Recently Relevant to Health Maintenance Results * BI MAMMOGRAM SCREENING WITH TOMOSYNTHESIS WITH CAD (BILATERAL) (05/21/2022 7:29 AM EDT) Anatomical Region Laterality Modality Breast Left, Breast Right, Breast Bilateral Bila teral Mammography 05/21/2022 4:30 PM EDT Impressions 05/21/2022 4:47 PM EDT No mammographic signs of malignancy. BI-RADS CATEGORY: 2 - Benign finding. DENSITY: The breast tissue is almost entirely fat. Narrative 05/21/2022 4:47 PM EDT History: Breast cancer screening. Bilateral mammography is performed in conjunction with computed aided detection. 3-D tomography along with 2-D C view imaging was also performed. Comparison made to previous dated as far back as 03/03/2003 and as recent as 07/26/2020. Findings: No suspicious masses, areas of architectural distortion or suspicious microcalcifications. Scattered benign calcifications again evident.. us Santos A Bigda DO IMG MG EXAMS Final Result * BD DXA AXIAL (SPINE) WITH HIP (02/08/2021 9:21 AM EDT) Anatomical Region Laterality Modality Bone Density Bone Density 02/08/2021 9:24 AM EDT Impressions 02/08/2021 11:04 AM EDT Lumbar spine and bilateral total hip osteopenia. Narrative 02/08/2021 11:04 AM EDT COMPARISON: 04/26/2016. BONE DENSITY FINDINGS: History: This is a 65-year-old postmenopausal female. Evaluation of the lumbar spine and hips was performed and felt to be technically adequate. L1-L4 vertebral bodies total bone mineral density was calculated at 0.841 gm/cm2 with a T-score of -1.9 falling within the WHO classification of osteopenia. Z-score of -0.1.Fracture risk increased. Right femoral neck bone mineral density was calculated at 0.664 gm/cm2 with a T- score of -1.7 falling within the WHO classification of osteopenia. Z-score of -0.1. Total Right hip bone mineral density was calculated at 0.734 gm/cm2 with a T- score of -1.7 falling within the WHO classification of osteopenia. Z-score of -0.4. Left femoral neck bone mineral density was calculated at 0.796 gm/cm2 with a T- score of -0.5 falling within the WHO classification of normal. Z-score of 1.1. Total Left hip bone mineral density was calculated at 0.743 gm/cm2 with a T- score of -1.6 falling within the WHO classification of osteopenia. Z-score of -0.4. 7.7% increase in bone density which is statistically significant. Procedure Note Gael Teague MD - 02/08/2021 COMPARISON: 04/26/2016. BONE DENSITY FINDINGS: History: This is a 65-year-old postmenopausal female. Evaluation of the lumbar spine and hips was performed and felt to betechnically adequate. L1-L4 vertebral bodies total bone mineral density was calculated at 0.841gm/cm2 with a T-score of -1.9 falling within the WHO classification ofosteopenia. Z-score of -0.1.Fracture risk increased. Right femoral neck bone mineral density was calculated at 0.664 gm/xc4tjsn a T- score of -1.7 falling within the WHO classification ofosteopenia. Z-score of -0.1. Total Right hip bone mineral density was calculated at 0.734 gm/cm2 with aT- score of -1.7 falling within the WHO classification of osteopenia.Z-score of -0.4. Left femoral neck bone mineral density was calculated at 0.796 gm/cm2 witha T- score of -0.5 falling within the WHO classification of normal.Z-score of 1.1. Total Left hip bone mineral density was calculated at 0.743 gm/cm2 with aT-score of -1.6 falling within the WHO classification of osteopenia.Z-score of -0.4. 7.7% increase in bone density which is statisticallysignificant. IMPRESSION: Lumbar spine and bilateral total hip osteopenia. us Santos A Bigda DO IMG BD BONE DENSITY DEXA Final R esult from Last 3 Months or Most Recently Relevant to Health Maintenance Insurance MEDICARE PART A & B Member Subscriber Plan / Payer (Ef fective 2020-Present) Name:Elidia Herrera Member ID:[id number] Relation to Subscriber:Self Name:Elidia Herrera Subscriber ID:[id number] Payer ID:[id number] Group ID:Not on file Type:Medicare Address: [employer] [address] [place] [phone] [facility] MEDICARE PPO BLUE REPLACEMENT MEDICARE PART A & B Member Subscriber Plan / Payer (Ef fective 2020-Present) Name:Elidia Herrera Member ID:[id number] Relation to Subscriber:Self Name:KatyajordanaElidia Subscriber ID:[id number] Payer ID:[id number] Group ID:Not on file Type:Medicare Address: [employer] [address] [place] [address] [place] [address] MEDICARE PPO BLUE REPLACEMENT MEDICARE PART A & B MEDICARE PART A & B MEDICARE PART A & B [place] MEDICARE PPO BLUE REPLACEMENT MEDICARE PART A & B MEDICARE PART A & B [place] MEDICARE PPO BLUE REPLACEMENT MEDICARE PART A & B MEDICARE PPO BLUE REPLACEMENT MEDICARE PART A & B MEDICARE PPO BLUE REPLACEMENT Care Teams Tool Procurement Coordinator Relationship Specialty Start Date End Date Santos Puga DO PCP - General 06/26/17 Santos Puga DO Historical LMR Provider 05/12/17 Tamir Valdez DO [address] [place] [address] [facility], [place] [address] Historical LMR Provider 05/12/17 Additional Source Comments The information contained in this document represents components of the legal health record. It is not the complete legal health record.[facility]
--- OUTSIDE RECORDS SUMMARY | 2025-06-22 08:53 | XMS_ITS | Encounter Summary ---
Author Organization [facility] Address [address] [place] [address] Phone Care Team Providers Care Traveling Clerk Name Role Phone Santos Puga DO Unavailable Tamir Valdez DO Unavailable [phone] WardSantos shultz DO Primary Care Provider [phone] Encounter Details Date Type Department Care Team (Late st Contact Info) Description 01/15/2023 Ancillary Orders [address] [phone] Brice Yusuf PA-C [address] [place] [address] [facility], [place], [place] [phone] [email or web address] Pain of left foot Social History Tobacco Use Types Packs/Day Years [...] st Contact Info) Description 12/13/2024 Procedure Pass [address] [address] 07/15/2025 11:15 AM EST Appointment [address] [address] Santos Puga, DO 179 [facility] [address] [place], [place] [phone] 07/15/2025 11:45 AM EST Appointment [facility] Bone Density [address] [address] Santos Puga, DO 179 [facility] [place], [place] [phone] documented as of this encounter Results * XR FOOT 3 OR MORE VIEWS (LEFT) (01/15/2023 9:50 AM EDT) Narrative SYSTEMGENERATED, DOCUMENTATION - 01/15/2023 9:50 AM EDT This image report has been auto-finalized and has not been read by a Radiologist. Interpretation has been included in the provider encounter note for this date of service. us Brice Yusuf PA-C IMG XR LOWER EXTREMITY Final Result documented in this encounter Visit Diagnoses Diagnosis Pain of left foot Pain of left foot documented in this encounter Care Teams Traveling Clerk Relationship Specialty Start Date End Date Santos Puga DO PCP - General 06/26/17 Santos Puga DO Historical LMR Provider 05/12/17 Tamir Valdez DO [address] [place] [address] Orthopedics & Sports Medicine, [facility] [place] [address] [email or web address] Historical LMR Provider 05/12/17 documented as of this encounter Additional Source Comments The information contained in this document represents components of the legal health record. It is not the complete legal health record.[facility]
--- OUTSIDE RECORDS SUMMARY | 2025-06-22 08:53 | XMS_ITS | Encounter Summary ---
Author Organization [facility] Address [address] [place] [id number] Phone Care Team Providers Care Trade Clerk Name Role Phone Santos Puga DO Unavailable Tamir Valdez DO Unavailable Dagmar Garcia PA-C Unavailable [phone] Magaly Diaz MD Unavailable [phone] Santos Puga DO Primary Care Provider [phone] Encounter Details Date Type Department Care Team (Late st Contact Info) Description 11/22/2020 Ancillary Orders Virtual Department [address] [place] [address] Santos Puga DO [address] [facility] [place] [address] [email or web address] Other specified disorders of bone density and structure, unspecified site; Osteopenia, unspecified location Social History Tobacco Use Types Packs/Day Years [...] st Contact Info) Description 12/13/2024 Procedure Pass [facility] [address] [place] [address] 07/15/2025 11:15 AM EST Appointment [place] [address] [place] [address] Santos Puga, DO [address] [facility] [place] [address] [email or web address] 07/15/2025 11:45 AM EST Appointment [facility], Bone Density - [address] [address] Santos Puga, [address] [facility] [place] [address] documented as of this encounter Results * BD DXA AXIAL (SPINE) WITH HIP [...] bone mineral density was calculated at 0.664 gm/ou1nlli a T- score of -1.7 falling within [...] Lumbar spine and bilateral total hip osteopenia. Santos Puga DO IMG BD BONE DENSITY DEXA Final R esult documented in this encounter Visit Diagnoses Diagnosis Other specified disorders of bone density and structure, unspecified site Osteopenia, unspecified location Other specified disorders of bone density and structure, unspecified site Osteopenia, unspecified location documented in this encounter Care Teams Trade Clerk Relationship Specialty Start Date End Date Santos Puga DO PCP - General 06/26/17 Santos Puga DO Historical LMR Provider 05/12/17 Tamir Valdez DO [address] [facility] Orthopedics Sports [facility], [facility]. [place], [place] [id number] Historical LMR Provider 05/12/17 Dagmar Garcia PA-C [address] [facility], [place] [address] Historical LMR Provider 05/12/17 08/04/21 Magaly Diaz MD [address] [facility] Orthopedics Sports [facility], [place] [address] Historical LMR Provider 05/12/17 documented as of this encounter Additional Source Comments The information contained in this document represents components of the legal health record. It is not the complete legal health record.[facility]
--- OUTSIDE RECORDS SUMMARY | 2025-06-22 08:53 | XMS_ITS | Encounter Summary ---
Author Organization [facility] Address [address] [place] [id number] Phone Care Team Providers Care Band Builder Name Role Phone Santos Puga DO Unavailable Tamir Valdez DO Unavailable [phone] Dagmar Garcia PA-C Unavailable [phone] Magaly Diaz MD Unavailable [phone] Santos Puga DO Primary Care Provider [phone] Encounter Details Date Type Department Care Team (Late st Contact Info) Description 06/10/2018 Ancillary Orders Virtual Department [address] [place] [address] Fanta Fernandez PA-C [address] [place] [place] [address] [email or web address] Ventral hernia without obstruction or gangrene Social History Tobacco Use Types Packs/Day Years [...] st Contact Info) Description 12/13/2024 Procedure Pass [address] [address] 07/15/2025 11:15 AM EST Appointment [address] [address] Santos Puga DO [address] [facility] [place] [address] 07/15/2025 11:45 AM EST Appointment [facility], Bone Density - [facility] [address] [place] [address] Santos PugaDO 179 [facility] [place] [address] documented as of this encounter Visit Diagnoses Diagnosis Ventral hernia without obstruction or gangrene Unspecified ventral hernia without mention of obstruction or gangrene documented in this encounter Care Teams Band Builder Relationship Specialty Start Date End Date Edd Santos TerrellDO PCP - General 06/26/17 Santos Puga DO Historical LMR Provider 05/12/17 Tamir Valdez DO 4 [facility] Orthopedics & Sports [facility], [facility]. [place], [place] [id number] Historical LMR Provider 05/12/17 Dagmar Garcia PA-C 4 [facility] Orthopedics & Sports Medicine, [facility]. [place], [place] [id number] Historical LMR Provider 05/12/17 08/04/21 Magaly Diaz MD 4 [facility] Orthopedics & Sports [facility], [place], [place] [id number] Historical LMR Provider 05/12/17 documented as of this encounter Additional Source Comments The information contained in this document represents components of the legal health record. It is not the complete legal health record.[facility]
--- OUTSIDE RECORDS SUMMARY | 2025-06-22 08:53 | XMS_ITS | Encounter Summary ---
Author Organization [facility] Address [address] [place] [address] Phone Care Team Providers Care Travel Accommodation Inspector Name Role Phone Wardcarrington Santos Xander Unavailable CourtneyTamir DO Unavailable [phone] Santos Puga DO Primary Care Provider [phone] Encounter Details Date Type Department Care Team (Late Contact Info) Description 12/13/2024 Transcribe Orders Virtual Department [address] [place] [address] Santos Puga DO 179 [facility] [place] [address] [email or web address] Encounter for screening for osteoporosis (Primary Dx); Breast screening Social History Tobacco Use Types [...] st Contact Info) Description 12/13/2024 Procedure Pass [facility], [address] [address] 07/15/2025 11:15 AM EST Appointment [address] [address] WardSantos shultz, DO 179 [facility] [place] [address] 07/15/2025 11:45 AM EST Appointment [facility], Bone Density [address] [address] EddSantos, DO [address] [place] [address] Scheduled Orders Name Type Priority Associated Diagnoses Orde r Schedule DXA Screening Imaging Routine Encounter for screening for osteoporosis Expected: 01/12/2025, Expires: 12/13/2025 Mammogram Screening (Bilateral) Imaging Routine Breast screening Expected: 01/13/2025, Expires: 12/13/2025 documented as of this encounter Visit Diagnoses Diagnosis Encounter for screening for osteoporosis- Primary Breast screening Breast screening, unspecified documented in this encounter Care Teams Travel Accommodation Inspector Relationship Specialty Start Date End Date Santos Puga DO PCP - General 06/26/17 Santos Puga DO Historical LMR Provider 05/12/17 Tamir Valdez DO [address] [place] [address] Orthopedics & Sports Medicine, [facility]. [place], [place] [id number] Historical LMR Provider 05/12/17 documented as of this encounter Additional Source Comments The information contained in this document represents components of the legal health record. It is not the complete legal health record.[facility]
[2025-06-22 13:38] LABS: MANUAL DIFF FLAG NO
[2025-06-22 13:53] LABS: Hematocrit 48.0 % (37.0-47.0); Hemoglobin 15.3 g/dl (12.0-16.0); Imm Gran Abs Auto 0.02 X10*3/uL (0.00-0.03); Imm Gran Pct Auto 0.3 % (0.0-0.4); Lymphocytes Absolute Auto 1.5 X10*3/uL (1.2-4.9); Mean Corpuscular HGB Conc 31.9 g/dl (31.0-35.0); Mean Corpuscular Hemoglobin 26.8 pg (27.0-33.0); Mean Corpuscular Volume 84.2 fL (80.0-98.0); NRBC Abs Auto 0.000 X10*3/uL (0.0-0.012); NRBC Pct Auto 0.0 /100WBC (0.0-0.2); Platelet Count 297 X10*3/uL (160-400); Red Blood Count 5.70 X10*6/uL (4.20-5.50); White Blood Count 6.2 X10*3/uL (4.8-10.8)
[2025-06-22 15:07] LABS: Alanine Aminotransferase 21 U/L (0-31); Albumin Level 4.7 g/dL (3.5-5.0); Alkaline Phosphatase 100 U/L (39-117); Anion Gap 13 (12-20); Aspartate Amino Transferase 26 U/L (5-31); Blood Urea Nitrogen 14 mg/dL (9-16); Calcium 9.5 mg/dL (8.4-10.2); Carbon Dioxide 28 mmol/L (22-29); Chloride 108 mmol/L (96-108); Cholesterol 194 mg/dL (<200); Estimated Glomerular Filt Rate > 60; HDL Cholesterol 61 mg/dL (>40); Potassium 4.6 mmol/L (3.3-5.1); Sodium 144 mmol/L (135-145); Total Protein 7.0 g/dL (6.5-8.0); Triglycerides 75 mg/dL (<150)
[2025-06-22 15:13] LABS: Folate 8.0 ng/mL (> or = 4.0); Vitamin B12 443 pg/mL (200-900)
== END 2025-06-22 08:29 | disposition home or self-care (01) ==
LOC: HO.MANLDS 08:28
PROVIDERS: Visit Provider Internal Medicine
DX: Z13.6 Encounter for screening for cardiovascular disorders (principal); E53.8 Deficiency of other specified B group vitamins; E55.9 Vitamin D deficiency, unspecified; R73.01 Impaired fasting glucose
CPT/HCPCS: 36415; 80053; 80061; 82306; 82607; 82746; 83036; 85025